=== PATIENT | female | born 1975 | race Hispanic/Latino ===

== ENCOUNTER 2020-03-09 09:35 | Day surgery (SDC) | payer MEDICAID ==
[2020-03-09] MEDS ORDERED: propofoL 200 MG/20 ML VIAL IV ONE (09:56)
[2020-03-09] MEDS ORDERED: CEFAZOLIN/SWI 1gm 1 GM/10 ML SYR ONE (09:56)
[2020-03-09] MEDS ORDERED: LIDOCAINE 1% MPF 5 ML VIAL ONE (09:56)
[2020-03-09] MEDS ORDERED: MIDAZOLAM HCL 2 MG/2 ML INJ ONE ×2 (09:56→10:37)
[2020-03-09] MEDS ORDERED: Ringers Lactate 1,000 ML IV ONE (09:56)
[2020-03-09] MEDS ORDERED: FENTANYL CITR 100 MCG/2 ML ONE (09:56)
[2020-03-09] MEDS: LIDOCAINE 1% MPF 30 ML VIAL ONE ×2 (10:01→10:34)
[2020-03-09] MEDS: HEPARIN 5000 UNIT/ML 1 ML VIAL ONE ×2 (10:01→11:00)
[2020-03-09] MEDS ORDERED: NS 0.9% VIAL 20 ML ONE (10:06)
[2020-03-09 10:11] LABS: Absolute Lymphocytes (CBC) 2.6 K/uL (0.7-4.9); Basophils % 1.5 % (0-1.3); Hematocrit 41.3 % (36.0-45.0); Lymphocytes % 37.4 % (15.3-44.8); MPV 10.2 fL (7.6-11.3); RBC Red Blood Cell Count 4.89 M/uL (3.86-4.86)
[2020-03-09] MEDS ORDERED: ONDANSETRON 4 MG/2 ML VIAL ONE (10:37)
--- OUTSIDE RECORDS SUMMARY | 2020-03-09 10:48 | XMS REPORT ---
:1975 Author Organization [facility] t Address [address] [place] [address] Dr. Waite[address] [place] [address] Care Team Providers Name Role Phone Unavailable Unavailable Unavailable Problems This patient has no known problems. Allergies, Adverse Reactions, Alerts This patient has no known allergies or adverse reactions. Medications This patient has no known medications. Results Test Description Test Time Test Comments Text Results Atomic Results Result Comments BREAST ULTRASOUND CORE 2020-01-06 13:16:29 - BREAST UL TRASOUND CORE BIOPSY BIOPSY RIGHT RIGHTULTRASOUND GUIDED BIOPS Y RIGHT BREAST WITH MARKING DEVICE INSERTED: 12/31/2019CLINICAL: Ultrasound biopsy, right felipe ast. Comparison is made to exams dated 12/16/2019 ultrasound and 12/07 mammogram - [facility]. An ultrasound g uided biopsy using real-time ultra sound was performed for the 4 cm m ass located in the right breast at 9 o'clock, 5 cm from the nippl e. The skin was prepped in the usua l manner. Local anesthetic wa s administered to the access s ite. A 14 gauge biopsy needle was p laced adjacent to the abnormality under ultrasound guidance. Once [facility] needle was documented to be in the correct location, multiple specimens were obtained usin g a [employer]ware biopsy device. A clip was inserted into the biopsy cav ity. The specimens were sent to [facility] laboratory for pathological analysis. IMPRESSION: ULTRA SOUND GUIDED BIOPSY MALIGNANT Ultr asound guided biopsy of the 4 cm ma ss in the right breast at 9 o'cloc k, 5 cm from the nipple, was success ful with no apparent post proced ure complications. PATHOLOGY INDICATES:Malignant invasive ductal carcinoma. Kareen Ansari dm/:01/06/2020 13:16:29 E ntry: lc - 01/06/2020 17:17:56Imagin g Technologist: Radha Moon FW, [facility] DIAG MAMM RIGHT CAD 2019-12-31 11:45:16 - DIAG MAMM R IGHT CAD DIGITAL DIGITALUNILATERAL RIGHT DIGI OTRRES DIAGNOSTIC MAMMOGRAM WITH CA D POST-PROCEDURE IMAGING FOR M ARKER PLACEMENT: 12/31/2019CLINICAL : Post clip. Current mammographic images were evaluated by either a [employer] M-Vu or a TIS[employer] ImageSush.iock er CAD (computer aided detection sy stem). Comparison is made to exam d ated 12/16/2019 [facility]ogram [facility] There ar e scattered fibroglandular tis sues in the right breast. There is a marker clip in the appropria te position in the right breast at 9 o'clock. This marker clip placement is at the biopsy s ite. IMPRESSION: POST PROCEDURE I MAGING FOR MARKER PLACEMENTThere wa s a successful marker clip place ment in the right breast. Kareen pompa M.D. dm/:12/31/2019 11:45:[address]: Brooklynn Sweeney FW, [facility] B I-RADS: Post-procedure mammogram for marker placement BREAST ULTRASOUND 2019-12-16 14:57:56 - DIAG MAMM UMM ATERAL JUAN DIEGO CAD BILATERAL DIGITALBILATERAL DIGITAL WAGNER GNOSTIC MAMMOGRAM 3D/2D WITH CAD: 12/16/2019CLINICAL: Palpable mass, right breast. Digital breas t tomosynthesis was performed in addition to routine CC and M LO views. Current mammographic images were evaluated by either a [employer] M-Vu or a [employer] ImageCheck er CAD (computer aided detection sy stem). No prior exams were availabl e for comparison. There are scatt ered fibroglandular tissues in jed th breasts. There is a 4 cm ir regular mass in the right breast at 9 o'clock. No other significa nt masses, calcifications, or o ther findings are seen in either breast. INCOMPLETE: ADDITIONAL IMAG ING EVALUATION NEEDEDBilateral ultrasound pending for addit ional evaluation. - BREAST ULTRAS OUND BILATERALULTRASOUND OF BOTH BREASTS AND LEFT AXILLA: 12/16/2019No prior exams were available for comparison. Real-time ultra sound of both breasts and left axi lla and clinical breast exam were performed. There is a 4 cm irregular mass in the right breast at 9 o'clock, 5 cm from the nipple. There are enlarged thick ri mmed lymph nodes in the right axi lla. No abnormalities were seen sonographically in the left breast or the left axilla. IMPRESS ION: HIGHLY SUGGESTIVE OF MALIGNA NCY - FOLLOW-UP RECOMMENDEDThe 4 c m irregular mass in the right breast at 9 o'clock needs histologi mode evaluation. An ultrasound g uided biopsy is recommended. The lymph nodes are abnormal.Kareen pompa M.D. dm/:12/16/2019 14:57:56 Entry: - 09/2020 07:39:40Imaging Technologist : Lo THOMSON, Olesya Carrillo [facility] sent: TOYIN Garvey 02/08 Biopsy Mammogram BI-RADS: 0 Incomplete: Additional Imagi ng Evaluation Needed Ultrasound BI-RADS: 5 Highly suggestive of malignancy DIAG MAMM BILATERAL JUAN DIEGO 2019-12-16 14:57:56 - DIAG M AMM BILATERAL JUAN DIEGO CAD CAD DIGITAL DIGITALBILATERAL DIGITAL WAGNER GNOSTIC MAMMOGRAM 3D/2D WITH CAD: 12/16/2019CLINICAL: Palpable mass, right breast. Digital breas t tomosynthesis was performed in addition to routine CC and M LO views. Current mammographic images were evaluated by either a [employer] M-Vu or a Ev[employer] er CAD (computer aided detection sy stem). No prior exams were availabl e for comparison. There are scatt ered fibroglandular tissues in jed th breasts. There is a 4 cm ir regular mass in the right breast at 9 o'clock. No other significa nt masses, calcifications, or o ther findings are seen in either breast. INCOMPLETE: ADDITIONAL IMAG ING EVALUATION NEEDEDBilateral ultrasound pending for addit ional evaluation. - BREAST ULTRAS OUND BILATERALULTRASOUND OF BOTH BREASTS AND LEFT AXILLA: 12/16/2019No prior exams were available for comparison. Real-time ultra sound of both breasts and left axi lla and clinical breast exam were performed. There is a 4 cm irregular mass in the right breast at 9 o'clock, 5 cm from the nipple. There are enlarged thick ri mmed lymph nodes in the right axi lla. No abnormalities were seen sonographically in the left breast or the left axilla. IMPRESS ION: HIGHLY SUGGESTIVE OF MALIGNA NCY - FOLLOW-UP RECOMMENDEDThe 4 c m irregular mass in the right breast at 9 o'clock needs histologi mode evaluation. An ultrasound g uided biopsy is recommended. The lymph nodes are abnormal.Kareen pompa M.D. dm/:12/16/2019 14:57:56 Entry: - 09/2020 07:39:40Imaging Technologist : Lo THOMSON, Olesya Carrillo [facility] sent: TOYIN Garvey 02/08 Biopsy Mammogram BI-RADS: 0 Incomplete: Additional Imagi ng Evaluation Needed Ultrasound BI-RADS: 5 Highly suggestive of malignancy
[2020-03-09] MEDS ORDERED: dexAMETHasone 10 MG/ML VIAL ONE (11:01)
[2020-03-09] MEDS ORDERED: KETOROLAC 30 MG/ML INJ ONE (11:02)
--- NOTE | 2020-03-09 11:53 | RAD REPORT ---
EXAM DESCRIPTION: RAD - Fluoroscopy <1 Hour - 03/09/2020 11:40 am CLINICAL HISTORY: Device placement central venous catheter placement FINDINGS: A central venous catheter was placed into the superior vena cava. Three fluoroscopic spot images are submitted. The examination was performed by Dr. Rodriguez Fluoroscopy time 0.8 minutes
--- NOTE | 2020-03-09 12:05 | RAD REPORT ---
EXAM DESCRIPTION: Hernandez Single View03/09/2020 11:54 am CLINICAL HISTORY: Device placement/central venous catheter placement IMPRESSION: Central venous catheter with its tip in the proximal superior vena cava No pneumothorax
[2020-03-09] MEDS ORDERED: HYDROCODONE/APAP 7.5/325 MG TAB ONE (12:39)
[2020-03-09 12:43] VITALS: BP 155/90; TEMP 96.1; O2SAT 97
--- NOTE | 2020-03-09 12:45 | OP ---
Date of Procedure: 03/09/2020 Surgeon: Wilver Rodriguez MD Preoperative Diagnosis: Right breast cancer. Postoperative Diagnosis: Right breast cancer. Procedures: Left internal jugular Port-A-Cath placement and interpretation of intraoperative fluoros copy. Estimated Blood Loss: Minimal. Specimens: None. Findings: Normal anatomy. Anesthesia: MAC in the beginning but patient was unable to hold still, that was converted to an LMA general prior to me beginning the case. Complications: None. Disposition: Patient tolerated the procedure in stable condition, taken to Recovery in good general condition. Procedure In Detail: Procedure was brought to the OR and placed in supine position and general anest hesia begun after MAC was unsuccessful and then patient was prepped and draped in the usual sterile f ashion. Marcaine 0.5% was infiltrated locally. 18-gauge needle was used to access the left IJ vein. Guidewire was passed. Position confirmed with fluoroscopy. 3 cm counterincision made on the left anterior chest. Subcutaneous tissue divided. Pocket created. A tunneling device was used to tunnel the catheter between the 2 wounds and Seldinger technique was used. Tip of the catheter was placed in the right distal SVC under fluoroscopy, cut to appropriate size, attached to the Port-A-Cath devic e. Port-A-Cath device was attached to subcutaneous tissue with 3-0 Vicryl and then Port-A-Cath devic e flushed with heparin and packed with heparin with good blood flow and then 3-0 chromic used to reap proximate the subcutaneous tissue and close the skin. Sterile dressing applied. Patient awakened, t aken to Recovery in good general condition. Chest x-ray has been ordered. If negative, patient will be discharged to home. Disposition: Home. Condition: Stable. Discharge Instructions: Resume home medications and diet. Activity as tolerated. No heavy lifting. Remove outer dressing in 2 days. Shower. Keep wound clean and dry. Keep Steri-Strips on all time s. Follow up with cancer Center. Call for appointment. Follow up in my office in 2 weeks. Call fo r appointment. Tylenol No. 3 one tablet p.o. q.4 h. p.r.n. pain. /NATANAELL Voice ID: [id number] Report ID: [id number]
== END 2020-03-09 13:15 | disposition home or self-care (01) ==
LOC: OR 09:35
PROVIDERS: ATTEND Surgery
PROC: 0JH60WZ Insertion of Totally Implantable Vascular Access Device into Chest Subcutaneous Tissue and Fascia, Open Approach (ICD-10-PCS; principal; 2020-03-09 10:00)
DX: C50.911 Malignant neoplasm of unspecified site of right female breast (principal); F17.200 Nicotine dependence, unspecified, uncomplicated
CPT/HCPCS: 85025; 36415; 71045; 76000; 36561; J2704; J1644 ×2; J2250 ×2; J3010; J1100; J0690; J7120; J2405; C1788

== ENCOUNTER 2020-05-25 08:05 | Emergency (ER) | payer MEDICAID, OTHER ==
[2020-05-25] MEDS ORDERED: dexAMETHasone 10 MG/ML VIAL ONE (09:04)
[2020-05-25] MEDS ORDERED: NA CHLORIDE 0.9% 1,000 ML ONE (09:04)
[2020-05-25] MEDS ORDERED: HYDROCODONE/CHLORPHEN 5 ML/OSYR ONE (09:04)
--- OUTSIDE RECORDS SUMMARY | 2020-05-25 09:10 | XMS REPORT | Continuity of Care Document ---
:1975 Author Organization [facility] t Address [address] [place] [address] Dr. Deluca [address] [place] [address] Care Team Providers Name Role Phone Unavailable Unavailable Unavailable Problems This patient has no known problems. Allergies, Adverse Reactions, Alerts This patient has no known allergies or adverse reactions. Medications This patient has no known medications. Procedures This patient has no known procedures. Results Test Description Test Time Test Comments Results Result [facility] e Comments BREAST ULTRASOUND 2020-01-06 - BREAST ULTRASOUND CORE CORE BIOPSY RIGHT 13:16:29 BIOPSY RIGHTULTRASOUND GUIDED BIOPSY RIGHT BREAST WITH MARKING DEVICE INSERTED: 12/31/2019CLINICAL: Ultrasound biopsy, right breast. Comparison is made to exams dated 12/16/2019 ultrasound and 12/16/2019 mammogram - [facility]-. An ultrasound guided biopsy using real-time ultrasound was performed for the 4 cm mass located in the right breast at 9 o'clock, 5 cm from the nipple. The skin was prepped in the usual manner. Local anesthetic was administered to the access site. A 14 gauge biopsy needle was placed adjacent to the abnormality under ultrasound guidance. Once the needle was documented to be in the correct location, multiple specimens were obtained using a BARD biopsy device. A clip was inserted into the biopsy cavity. The specimens were sent to the laboratory for pathological analysis. IMPRESSION: ULTRASOUND GUIDED BIOPSY MALIGNANT Ultrasound guided biopsy of the 4 cm mass in the right breast at 9 o'clock, 5 cm from the nipple, was successful with no apparent post procedure complications. PATHOLOGY INDICATES:Malignant invasive ductal carcinoma. Kareen Quintero M.D. dm/:01/06/2020 13:16:29 Entry: - 01/06/2020 17:17:56Imaging Technologist: Radha Moon , [facility]- DIAG MAMM RIGHT 2019-12-31 - DIAG MAMM RIGHT CAD CAD DIGITAL 11:45:16 DIGITALUNILATERAL RIGHT DIGITAL DIAGNOSTIC MAMMOGRAM WITH CAD POST-PROCEDURE IMAGING FOR MARKER PLACEMENT: 12/31/2019CLINICAL: Post clip. Current mammographic images were evaluated by either a [employer] M-Vu or a [employer] ImageChecker CAD (computer aided detection system). Comparison is made to exam dated 12/16/2019 mammogram - [facility]-. There are scattered fibroglandular tissues in the right breast. There is a marker clip in the appropriate position in the right breast at 9 o'clock. This marker clip placement is at the biopsy site. IMPRESSION: POST PROCEDURE IMAGING FOR MARKER PLACEMENTThere was a successful marker clip placement in the right breast. Kareen Quintero M.D. dm/:12/31/2019 11:45:16 Shark Biologist: Brooklynn Sweeney FW, [facility]FWMammogram BI-RADS: Post-procedure mammogram for marker placement BREAST ULTRASOUND 2019-12-16 - DIAG MAMM BILATERAL BILATERAL 14:57:56 JUAN DIEGO CAD DIGITALBILATERAL DIGITAL DIAGNOSTIC MAMMOGRAM 3D/2D WITH CAD: 12/16/2019CLINICAL: Palpable mass, right breast. Digital breast tomosynthesis was performed in addition to routine CC and MLO views. Current mammographic images were evaluated by either a [employer] M-Vu or a [employer] ImageChecker CAD (computer aided detection system). No prior exams were available for comparison. There are scattered fibroglandular tissues in both breasts. There is a 4 cm irregular mass in the right breast at 9 o'clock. No other significant masses, calcifications, or other findings are seen in either breast. INCOMPLETE: ADDITIONAL IMAGING EVALUATION NEEDEDBilateral ultrasound pending for additional evaluation. - BREAST ULTRASOUND BILATERALULTRASOUND OF BOTH BREASTS AND LEFT AXILLA: 12/16/2019No prior exams were available for comparison. Real-time ultrasound of both breasts and left axilla and clinical breast exam were performed. There is a 4 cm irregular mass in the right breast at 9 o'clock, 5 cm from the nipple. There are enlarged thick rimmed lymph nodes in the right axilla. No abnormalities were seen sonographically in the left breast or the left axilla. IMPRESSION: HIGHLY SUGGESTIVE OF MALIGNANCY - FOLLOW-UP RECOMMENDEDThe 4 cm irregular mass in the right breast at 9 o'clock needs histological evaluation. An ultrasound guided biopsy is recommended. The lymph nodes are abnormal.Kareen Quintero M.D. dm/:12/16/2019 14:57:56 [facility] 12/17/2019 07:39:40Imaging Technologist: Julieta Hills [facility]letter sent: BIRADS 4/5 Biopsy Mammogram BI-RADS: 0 Incomplete: Additional Imaging Evaluation Needed Ultrasound BI-RADS: 5 Highly suggestive of malignancy DIAG MAMM 2019-12-16 - DIAG MAMM BILATERAL BILATERAL JUAN DIEGO 14:57:56 JUAN DIEGO CAD CAD DIGITAL DIGITALBILATERAL DIGITAL DIAGNOSTIC MAMMOGRAM 3D/2D WITH CAD: 12/16/2019CLINICAL: Palpable mass, right breast. Digital breast tomosynthesis was performed in addition to routine CC and MLO views. Current mammographic images were evaluated by either a [employer] M-Vu or a [employer] ImageChecker CAD (computer aided detection system). No prior exams were available for comparison. There are scattered fibroglandular tissues in both breasts. There is a 4 cm irregular mass in the right breast at 9 o'clock. No other significant masses, calcifications, or other findings are seen in either breast. INCOMPLETE: ADDITIONAL IMAGING EVALUATION NEEDEDBilateral ultrasound pending for additional evaluation. - BREAST ULTRASOUND BILATERALULTRASOUND OF BOTH BREASTS AND LEFT AXILLA: 12/16/2019No prior exams were available for comparison. Real-time ultrasound of both breasts and left axilla and clinical breast exam were performed. There is a 4 cm irregular mass in the right breast at 9 o'clock, 5 cm from the nipple. There are enlarged thick rimmed lymph nodes in the right axilla. No abnormalities were seen sonographically in the left breast or the left axilla. IMPRESSION: HIGHLY SUGGESTIVE OF MALIGNANCY - FOLLOW-UP RECOMMENDEDThe 4 cm irregular mass in the right breast at 9 o'clock needs histological evaluation. An ultrasound guided biopsy is recommended. The lymph nodes are abnormal.Kareen Quintero M.D. dm/:12/16/2019 14:57:56 [facility] 12/17/2019 07:39:40Imaging Technologist: Lo THOMSON, [facility] sent: BIRADS 4/5 Biopsy Mammogram BI-RADS: 0 Incomplete: Additional Imaging Evaluation Needed Ultrasound BI-RADS: 5 Highly suggestive of malignancy
[2020-05-25 09:32] LABS: Absolute Lymphocytes (CBC) 0.8 K/uL (0.7-4.9); Basophils % 0.2 % (0-1.3); Hematocrit 29.5 % (36.0-45.0); MPV 8.5 fL (7.6-11.3); RBC Red Blood Cell Count 3.45 M/uL (3.86-4.86)
[2020-05-25 09:42] LABS: Protime INR 1.22
[2020-05-25 10:06] LABS: Urine Amorphous Sediment 2+ /HPF (NONE SEEN); Urine Bacteria 20-50 /HPF (<20); Urine Culture Reflex Order REFLEXED; Urine Mucus 2+ /HPF (NONE SEEN)
[2020-05-25 10:12] LABS: ALT/SGPT 38 U/L (12-78); AST/SGOT 29 U/L (15-37); Albumin 3.3 g/dL (3.4-5.0); Alkaline Phosphatase 81 U/L (45-117); BUN Blood Urea Nitrogen 8 mg/dL (7-18); Bicarbonate 24 mmol/L (21-32); Bilirubin Direct 0.1 mg/dL (0-0.2); Bilirubin Total 0.6 mg/dL (0.2-1.0); Glucose Level 129 mg/dL (74-106); Lipase 43 U/L (73-393); Potassium 3.8 mmol/L (3.5-5.1); Protein, Total 7.2 g/dL (6.4-8.2); Sodium Level 142 mmol/L (136-145); Troponin (Emerg Dept Use Only) 0.04 ng/mL (0.0-0.045)
[2020-05-25 10:15] LABS: Anisocytosis 1+; Blood Morphology Comment NOTED (NOT SEEN); Polychromasia 1+
[2020-05-25 10:35] LABS: Urine Blood 2+ (NEG); Urine Glucose NEGATIVE (NEG); Urine Protein 1+ (NEG); Urine Specific Gravity >1.030 (1.005-1.030); Urine pH 5.5 (5.0-7.0)
[2020-05-25 11:11] LABS: Platelet Estimate ADEQ
--- NOTE | 2020-05-25 11:19 | RAD REPORT ---
EXAM DESCRIPTION: CT - Chest For Pe Angio - 05/25/2020 10:52 am CLINICAL HISTORY: Shortness breath COMPARISON: February 2020 TECHNIQUE: Dynamically enhanced axial 3 mm thick images of the chest were obtained during administra tion of <100> mL Isovue 370 IV contrast. Coronal and oblique reconstruction images were generated and reviewed. Exam utilizes a protocol for optimal evaluation of pulmonary arterial tree. Maximum intensity projections 3D imaging was utilized All CT scans are performed using dose optimization technique as appropriate and may include automated exposure control or mA/KV adjustment according to patient size. FINDINGS: A pulmonary embolus is not seen. A thoracic aortic aneurysm is not noted. A pleural effusion is not seen. A pericardial effusion is not seen. Mild to moderate diffuse bilateral ground-glass opacities Development of a 9 x 7 millimeter anterior mediastinal lymph node The 4.3 centimeter right breast mass described on the prior exam is no longer evident. Ill-defined 20 x 10 millimeter opacity in this region likely post treatment change. The mild right axillary lymphad enopathy has resolved IMPRESSION: Negative for a pulmonary embolism. Mild to moderate diffuse bilateral ground-glass opacities may indicate pneumonitis
--- NOTE | 2020-05-25 11:20 | RAD REPORT ---
EXAM DESCRIPTION: Hernandez Single View05/25/2020 9:59 am CLINICAL HISTORY: Cough COMPARISON: March 2020 FINDINGS: Lungs are mildly hazy The heart is normal size A left central venous line has its tip in the distal brachiocephalic vein. IMPRESSION: Lungs are mildly hazy which may indicate pneumonitis
--- NOTE | 2020-05-25 13:29 | EDPHYS ---
Physician Documentation [facility] Name: Sujey Dunlap Age: 44 yrs Sex: Female : 1975 Arrival Date: 05/25/2020 Time: 08:07 Bed 18 Private MD: Alysia Kruse ED Physician Gonzalez Moura HPI: 05/25 10:37 This 44 yrs old Female presents to ER via Ambulatory with complaints of Cough, snw Fever, Shortness Of Breath. 10:37 The patient or guardian reports cough, described as moderate, with productive sputum, snw that is white, difficulty breathing. Onset: The symptoms/episode began/occurred gradually, 4 day(s) ago, and became persistent. Modifying factors: The symptoms are alleviated by nothing. Associated signs and symptoms: Pertinent positives: fever, Sob on exertion. The patient has not experienced similar symptoms in the past. pt had chemo last week. Started with bodyaches last week, thought it was just chemo. Pt started having fever to 101 over the weekend, productive cough, started with diarrhea this am. Sees Dr. Burroughs and Dr. Rodriguez. Historical: - Allergies: 08:26 Codeine; bp - Home Meds: 08:26 gabapentin 300 mg oral cap 1 cap 3 times per day [Active]; tramadol 50 mg Oral tab 1 bp tab every 6 hours [Active]; dexamethasone 4 mg Oral tab 2.5 tabs once daily [Active]; - PMHx: 08:26 Cancer; bp - Immunization history:: Adult Immunizations up to date. - Social history:: Smoking status: Patient denies any tobacco usage or history of. ROS: 10:36 Eyes: Negative for injury, pain, redness, and discharge, ENT: Negative for injury, snw pain, and discharge, Neck: Negative for injury, pain, and swelling, Cardiovascular: Negative for chest pain, palpitations, and edema. 10:36 Abdomen/GI: Negative for abdominal pain, nausea, vomiting, diarrhea, and constipation, Back: Negative for injury and pain, : Negative for injury, bleeding, discharge, and swelling, MS/Extremity: Negative for injury and deformity, Skin: Negative for injury, rash, and discoloration, Neuro: Negative for headache, weakness, numbness, tingling, and seizure, Psych: Negative for depression, anxiety, suicide ideation, homicidal ideation, and hallucinations. 10:36 Constitutional: Positive for body aches, fever, malaise, productive cough. 10:36 Respiratory: Positive for cough, shortness of breath. Exam: 10:31 Head/Face: Normocephalic, atraumatic. Eyes: Pupils equal round and reactive to light, snw extra-ocular motions intact. Lids and lashes normal. Conjunctiva and sclera are non-icteric and not injected. Cornea within normal limits. Periorbital areas with no swelling, redness, or edema. ENT: Nares patent. No nasal discharge, no septal abnormalities noted. Tympanic membranes are normal and external auditory canals are clear. Oropharynx with no redness, swelling, or masses, exudates, or evidence of obstruction, uvula midline. Mucous membranes moist. Neck: Trachea midline, no thyromegaly or masses palpated, and no cervical lymphadenopathy. Supple, full range of motion without nuchal rigidity, or vertebral point tenderness. No Meningismus. Chest/axilla: Normal chest wall appearance and motion. Nontender with no deformity. No lesions are appreciated. 10:31 Abdomen/GI: Soft, non-tender, with normal bowel sounds. No distension or tympany. No guarding or rebound. No evidence of tenderness throughout. Back: No spinal tenderness. No costovertebral tenderness. Full range of motion. Skin: Warm, dry with normal turgor. Normal color with no rashes, no lesions, and no evidence of cellulitis. MS/ Extremity: Pulses equal, no cyanosis. Neurovascular intact. Full, normal range of motion. Neuro: Awake and alert, GCS 15, oriented to person, place, time, and situation. Cranial nerves II-XII grossly intact. Motor strength 5/5 in all extremities. Sensory grossly intact. Cerebellar exam normal. Normal gait. Psych: Awake, alert, with orientation to person, place and time. Behavior, mood, and affect are within normal limits. 10:31 Constitutional: The patient appears alert, awake, pale. 10:31 Cardiovascular: Rate: tachycardic, Rhythm: regular, Pulses: no pulse deficits are appreciated, Edema: is not appreciated. 10:31 Respiratory: moderate respiratory distress is noted, on return from ambulation from bathroom, pt tachycardic and noticeably short of breath, Respirations: shallow respirations, tachypnea, that is moderate, Breath sounds: bronchial sounds, that are mild, Respiratory rate: 34 10:31 Respiratory: cough productive of white sputum. Vital Signs: 08:22 BP 119 / 64; Pulse 125; Resp 17; Temp 99.1; Pulse Ox 99% ; Weight 92.53 kg; Height 5 bp ft. 4 in. (162.56 cm); 10:00 BP 111 / 48; Pulse 112; Resp 17; Pulse Ox 96% ; bp 11:08 BP 124 / 55; Pulse 106; Resp 19; Pulse Ox 93% on R/A; bp 12:07 BP 122 / 68; Pulse 108; Resp 16; Pulse Ox 96% ; bp 13:21 BP 111 / 73; Pulse 106; Resp 17; Pulse Ox 97% ; bp 08:22 Body Mass Index 35.02 (92.53 kg, 162.56 cm) bp MDM: 09:06 Patient medically screened. snw 13:31 Data reviewed: vital signs, nurses notes. Data interpreted: Pulse oximetry: on room air snw is 97 %. Interpretation: normal. Counseling: I had a detailed discussion with the patient and/or guardian regarding: the historical points, exam findings, and any diagnostic results supporting the discharge/admit diagnosis, lab results, radiology results, the need for outpatient follow up, to return to the emergency department if symptoms worsen or persist or if there are any questions or concerns that arise at home. Special discussion: Based on the history and exam findings, there is no indication for further emergent testing or inpatient evaluation. I discussed with the patient/guardian the need to see the index clerk/oncologist for further evaluation of the symptoms. I discussed with the patient/guardian the need to see the primary care provider for further evaluation of the symptoms. 05/25 08:34 Order name: Blood Culture Adult (2) bp 05/25 08:34 Order name: BMP bp 05/25 08:34 Order name: C-Reactive Protein bp 05/25 08:34 Order name: CBC with Diff bp 05/25 08:34 Order name: COVID-19 bp 05/25 08:34 Order name: Ferritin; Complete Time: 10:20 bp 05/25 08:34 Order name: Flu; Complete Time: 10:20 bp 05/25 08:34 Order name: Lactate; Complete Time: 09:45 bp 05/25 08:34 Order name: LFT's; Complete Time: 10:20 bp 05/25 08:34 Order name: Lipase; Complete Time: 10:20 bp 05/25 08:34 Order name: Procalcitonin; Complete Time: 10:20 bp 05/25 08:34 Order name: PT-INR; Complete Time: 09:45 bp 05/25 08:34 Order name: Ptt, Activated; Complete Time: 09:45 bp 05/25 08:34 Order name: Strep; Complete Time: 10:20 bp 05/25 08:34 Order name: Troponin (emerg Dept Use Only); Complete Time: 10:20 bp 05/25 08:34 Order name: Urine Microscopic Only; Complete Time: 10:20 bp 05/25 08:34 Order name: CXR XRAY 05/25 08:34 Order name: EKG; Complete Time: 08:36 bp 05/25 08:35 Order name: Blood Culture [facility] 05/25 08:35 Order name: Basic Metabolic Panel; Complete Time: 10:20 EDN[facility] 05/25 08:35 Order name: C-Reactive Protein; Complete Time: 10:20 EDN[facility] 05/25 08:35 Order name: CBC with Automated Diff; Complete Time: 11:11 EDN[facility] 05/25 09:36 Order name: Urine Dipstick--Ancillary (enter results); Complete Time: 10:40 mt 05/25 09:58 Order name: Throat Culture [facility] 05/25 10:08 Order name: Urine Culture [facility] 05/25 10:15 Order name: Manual Differential; Complete Time: 11:11 EDNJ 05/25 10:22 Order name: CT Chest For PE Angio; Complete Time: 11:20 bp 05/25 08:34 Order name: Cardiac monitoring; Complete Time: 09:31 bp 05/25 08:34 Order name: Document PUI#; Complete Time: 10:25 bp 05/25 08:34 Order name: Droplet/Contact Precautions; Complete Time: 09:31 bp 05/25 08:34 Order name: EKG - Nurse/Tech; Complete Time: 10:21 bp 05/25 08:34 Order name: IV Start; Complete Time: 09:31 bp 05/25 08:34 Order name: Labs collected and sent; Complete Time: 09:30 bp 05/25 08:34 Order name: Notify Health Dept [phone]/ ; Complete Time: 10:25 bp 05/25 08:34 Order name: O2 Per Protocol; Complete Time: 09:30 bp 05/25 08:34 Order name: O2 Sat Monitoring; Complete Time: 09:31 bp 05/25 08:34 Order name: Urine Dipstick-Ancillary (obtain specimen); Complete Time: 09:31 bp Administered Medications: 09:15 Drug: NS 0.9% 1000 ml Route: IV; Rate: 125 ml/hr; Site: right forearm; bp 13:54 Follow up: IV Status: Completed infusion; IV Intake: 1000ml bp 09:15 Drug: Decadron - Dexamethasone 10 mg Route: IVP; Site: right forearm; bp 10:21 Follow up: Response: No adverse reaction bp 10:21 Follow up: Response: No adverse reaction bp 09:15 Drug: Tussionex Pennkinetic ER 5 ml Route: PO; bp 13:54 Follow up: Response: Pain is decreased bp Disposition: 15:37 Co-signature as Attending Physician, Gonzalez Moura MD. rn Disposition: 05/25/20 13:28 Discharged to Home. Impression: SARS-associated coronavirus as the cause of diseases classified elsewhere. - Condition is Stable. - Discharge Instructions: Severe Acute Respiratory Syndrome (SARS). - Prescriptions for Prednisone 20 mg Oral Tablet - take 1 tablet by ORAL route once daily for 5 days; 5 tablet. Zithromax 500 mg Oral Tablet - take 1 tablet by ORAL route once daily for 5 days; 5 tablet. - Medication Reconciliation Form, Thank You Letter, Antibiotic Education, Prescription Opioid Use form. - Follow up: Emergency Department; When: As needed; Reason: Worsening of condition. Follow up: Alysia Kruse MD; When: 2 - 3 days; Reason: Recheck today's complaints, Continuance of care, Re-evaluation by your physician. Signatures: Dispatcher [employer] EDNanette Lyn, BAG FILLER-C BAG FILLER-Csnw Gonzalez Moura MD MD rn Peltier, Brian RN RN bp Corrections: (The following items were deleted from the chart) 13:54 13:28 05/25/2020 13:28 Discharged to Home. Impression: SARS-associated coronavirus as bp the cause of diseases classified elsewhere. Condition is Stable. Forms are Medication Reconciliation Form, Thank You Letter, Antibiotic Education, Prescription Opioid Use. Follow up: Emergency Department; When: As needed; Reason: Worsening of condition. Follow up: Alysia Can; When: 2 - 3 days; Reason: Recheck today's complaints, Continuance of care, Re-evaluation by your physician. snw
--- NOTE | 2020-05-25 13:29 | ER ---
Nurse's Notes [facility] Name: Sujey Dunlap Age: 44 yrs Sex: Female : 1975 Arrival Date: 05/25/2020 Time: 08:07 Bed 18 Private MD: Alysia Kruse Diagnosis: SARS-associated coronavirus as the cause of diseases classified elsewhere Presentation: 05/25 08:22 Chief complaint: Patient states: MY DOCTOR SENT ME HERE BECAUSE I'M A CHEMO PATIENT AND bp I HAD A COUGH AND FEVER OVER THE WEEKEND. Coronavirus screen: Patient reports a cough. Patient reports shortness of breath or difficulty breathing. Patient reports a measured and/or subjective temperature greater than 100.4F. Patient instructed to continue to wear a mask when interacting with others. Patient moved to private room, placed in contact and droplet isolation with eye protection until further assessment. Ebola Screen: No symptoms or risks identified at this time. Initial Sepsis Screen: Does the patient meet any 2 criteria? HR > 90 bpm. No. Patient's initial sepsis screen is negative. Does the patient have a suspected source of infection? Yes: Productive cough/pneumonia. Risk Assessment: Do you want to hurt yourself or someone else? Patient reports no desire to harm self or others. Onset of symptoms is unknown. 08:22 Method Of Arrival: Ambulatory bp 08:22 Acuity: MARQUEZ 3 bp Triage Assessment: 08:26 General: Appears in no apparent distress. uncomfortable, Behavior is calm, cooperative, bp appropriate for age. Pain: Denies pain. EENT: No deficits noted. Neuro: No deficits noted. Cardiovascular: Rhythm is sinus tachycardia. Respiratory: Reports shortness of breath at rest cough that is Onset: The symptoms/episode began/occurred 2 DAYS AGO, the patient has moderate shortness of breath. GI: No signs and/or symptoms were reported involving the gastrointestinal system. : No signs and/or symptoms were reported regarding the genitourinary system. Derm: No deficits noted. Musculoskeletal: No deficits noted. Historical: - Allergies: 08: Codeine; bp - Home Meds: 08: gabapentin 300 mg oral cap 1 cap 3 times per day [Active]; tramadol 50 mg Oral tab 1 bp tab every 6 hours [Active]; dexamethasone 4 mg Oral tab 2.5 tabs once daily [Active]; - PMHx: 08:26 Cancer; bp - Immunization history:: Adult Immunizations up to date. - Social history:: Smoking status: Patient denies any tobacco usage or history of. Screenin:28 Abuse screen: Denies threats or abuse. Denies injuries from another. Nutritional bp screening: No deficits noted. Tuberculosis screening: No symptoms or risk factors identified. Fall Risk None identified. Assessment: 08:28 General: SEE TRIAGE NOTE. Cardiovascular: Rhythm is sinus tachycardia. Respiratory: bp Airway is patent Respiratory effort is even, labored, Breath sounds are coarse. 10:00 Reassessment: CT PENDING. ST ON MONITOR, PT AFFIRMS DYSPNEA WITH REST AND EXERTION. bp 11:09 Reassessment: PT RETURNED FROM CT. ALL CURRENT ORDERS COMPLETE. bp 12:05 Reassessment: CT CHEST GROSSLY ABNORMAL, PROVIDER AWARE. VS STABLE ON MONITOR. bp 13:26 Reassessment: DISPO PENDING. VS STABLE ON MONITOR. bp 13:53 Reassessment: PT D/C HOME AMBULATORY, DX WITH SARS-RELATED CORONAVIRUS. bp Vital Signs: 08:22 BP 119 / 64; Pulse 125; Resp 17; Temp 99.1; Pulse Ox 99% ; Weight 92.53 kg; Height 5 bp ft. 4 in. (162.56 cm); 10:00 BP 111 / 48; Pulse 112; Resp 17; Pulse Ox 96% ; bp 11:08 BP 124 / 55; Pulse 106; Resp 19; Pulse Ox 93% on R/A; bp 12:07 BP 122 / 68; Pulse 108; Resp 16; Pulse Ox 96% ; bp 13:21 BP 111 / 73; Pulse 106; Resp 17; Pulse Ox 97% ; bp 08:22 Body Mass Index 35.02 (92.53 kg, 162.56 cm) bp ED Course: 08:07 Patient arrived in ED. ag5 08:07 Alysia Kruse MD is Private Physician. ag5 08:16 Mega Hooper, TRACI is Primary Nurse. bp 08:17 Nan[facility] Faustin [facility]C [facility] snw 08:17 Gonzalez Moura MD is Attending Physician. snw 08:24 Triage completed. bp 08:27 Arm band placed on. bp 08:28 Patient has correct armband on for positive identification. Bed in low position. Call bp light in reach. Side rails up X2. 09:15 Inserted saline lock: 20 gauge in right forearm, using aseptic technique. Blood bp collected. 09:59 CXR XRAY In Process Unspecified. EDMS 10:52 CT Chest For PE Angio In Process Unspecified. EDMS 13:28 Alysia Kruse MD is Referral Physician. snw 13:53 No provider procedures requiring assistance completed. IV discontinued, intact, bp bleeding controlled, No redness/swelling at site. Pressure dressing applied. Administered Medications: 09:15 Drug: NS 0.9% 1000 ml Route: IV; Rate: 125 ml/hr; Site: right forearm; bp 13:54 Follow up: IV Status: Completed infusion; IV Intake: 1000ml bp 09:15 Drug: Decadron - Dexamethasone 10 mg Route: IVP; Site: right forearm; bp 10:21 Follow up: Response: No adverse reaction bp 10:21 Follow up: Response: No adverse reaction bp 09:15 Drug: Tussionex Pennkinetic ER 5 ml Route: PO; bp 13:54 Follow up: Response: Pain is decreased bp Intake: 13:54 IV: 1000ml; Total: 1000ml. bp Outcome: 13:28 Discharge ordered by . snw 13:53 Discharged to home ambulatory. bp 13:53 Condition: stable 13:53 Discharge instructions given to patient, Instructed on discharge instructions, follow up and referral plans. medication usage, Demonstrated understanding of instructions, follow-up care, medications, Prescriptions given X 2. 13:54 Patient left the ED. bp Addendum: 05/28/2020 13:41 Addendum: COVID-19 Result: Negative result given to RN to notify pt. Contacted by: Coty Smith RN. Notified pt of negative COVID 19 swab results. Pt advised that even with a negative test result they should remain in isolation until symptom free for 3 days without medication. Pt also advised to return to the ED for worsening symptoms. Signatures: Dispatcher [employer] Masha Cormier, RN RN dm5 Nanette Faustin, POLYTECHNIC TEACHER-C POLYTECHNIC TEACHER-Claudiaw Mega Hooper RN RN bp Tonya Prater ag5
[2020-05-25 22:00] VITALS: TEMP 99.1
[2020-05-25 22:07] VITALS: BP 111/73; O2SAT 97
--- NOTE | 2020-05-26 10:17 | EKG ---
Test Date: 2020-05-25 Test Time: 10:30:41 Interpreter: BERNICE MEASUREMENT RESULTS: Intervals: Rate: 102 KS: 156 QRSD: 86 QT: 390 QTc: 508 Andreas: P: 51 KS: 156 QRS: 32 T: 28 INTERPRETIVE STATEMENTS: Sinus tachycardia Otherwise normal ECG No previous ECG available for comparison Electronically Signed On 05-26-20 10:14:05 CDT by Tushar Roe
== END 2020-05-25 13:54 | disposition home or self-care (01) ==
LOC: ER 08:05
DX: U07.1 COVID-19 (principal); Z88.6 Allergy status to analgesic agent; Z85.9 Personal history of malignant neoplasm, unspecified
CPT/HCPCS: 96361; 93005; 87040 ×2; 87070; 87088; 85025; 87086; 80048; 36415; 85610; 80076; 87081; 83605; 85730; 84484; 82728; 83690; 84145; 86140; 87804 ×2; 71275; 71045; 96374; 99284; U0001; Q9967; J1100; J7030; 81003; 81015

== ENCOUNTER 2020-06-27 13:13 | Emergency (ER) | payer MEDICAID ==
--- OUTSIDE RECORDS SUMMARY | 2020-06-27 13:15 | XMS REPORT | Continuity of Care Document ---
:1975 Author Organization [facility] t Address [address] [place] [address] [address] [place] [address] Care Team Providers Name Role Phone Unavailable Unavailable Unavailable Problems This patient has no known problems. Allergies, Adverse Reactions, Alerts This patient has no known allergies or adverse reactions. Medications This patient has no known medications. Procedures This patient has no known procedures. Results Test Description Test Time Test Comments Results Result [facility] e Comments BREAST ULTRASOUND 2020-01-06 - BREAST ULTRASOUND CORE CORE BIOPSY RIGHT 13:16:29 BIOPSY RIGHTULTRASOUND GUIDED BIOPSY RIGHT BREAST WITH MARKING DEVICE INSERTED: 12/31/2019CLINICAL: Ultrasound biopsy, right breast. Comparison is made to exams dated 12/16/2019 ultrasound and 12/16/2019 mammogram - [facility]-. An ultrasound guided biopsy using [...] 01/06/2020 17:17:56Imaging Technologist: Radha Moon , [facility]- DIAG MAMM RIGHT 2019-12-31 - DIAG MAMM RIGHT CAD CAD DIGITAL 11:45:16 DIGITALUNILATERAL RIGHT DIGITAL DIAGNOSTIC MAMMOGRAM WITH CAD POST-PROCEDURE IMAGING FOR MARKER PLACEMENT: 12/31/2019CLINICAL: Post clip. Current mammographic images were evaluated by either a [employer] M-Vu or a [employer] ImageChecker CAD (computer aided detection system). Comparison is made to exam dated 12/16/2019 mammogram - [facility]-. There are scattered fibroglandular tissues in the right breast. There is a marker clip in the appropriate position in the right breast at 9 o'clock. This marker clip placement is at the biopsy site. IMPRESSION: POST PROCEDURE IMAGING FOR MARKER PLACEMENTThere was a successful marker clip placement in the right breast. Kareen Quintero M.D. dm/:12/31/2019 11:45:16 Emergency Planner: Brooklynn Sweeney FW, [facility]-FWMammogram BI-RADS: Post-procedure mammogram for marker placement BREAST ULTRASOUND 2019-12-16 - DIAG MAMM BILATERAL BILATERAL 14:57:56 JUAN DIEGO CAD DIGITALBILATERAL DIGITAL DIAGNOSTIC MAMMOGRAM 3D/2D WITH CAD: 12/16/2019CLINICAL: Palpable mass, right breast. Digital breast tomosynthesis was performed in addition to routine CC and MLO views. Current mammographic images were evaluated by either a [employer] M-Vu or a [employer] ImageChecker CAD (computer aided detection system). No [...] are abnormal.Kareen Quintero M.D. dm/:12/16/2019 14:57:56 Entry: [facility] 12/17/2019 07:39:40Imaging Technologist: Julieta Hills [facility]-FWletter sent: BIRADS 4/5 Biopsy Mammogram [...] mammographic images were evaluated by either a [employer] M-Vu or a [employer] ImageChecker CAD (computer aided detection system). No [...] are abnormal.Kareen Quintero M.D. dm/:12/16/2019 14:57:56 Entry: [facility] 12/17/2019 07:39:40Imaging Technologist: Lo THOMSON, [facility]-FWletter sent: BIRADS 4/5 Biopsy Mammogram BI-RADS: 0 Incomplete: Additional Imaging Evaluation Needed Ultrasound BI-RADS: 5 Highly suggestive of malignancy
[2020-06-27] MEDS ORDERED: NA CHLORIDE 0.9% 1,000 ML ONE (15:01)
[2020-06-27 15:15] LABS: Absolute Lymphocytes (CBC) 0.6 K/uL (0.7-4.9); Basophils % 0.9 % (0-1.3); Hematocrit 34.4 % (36.0-45.0); Lymphocytes % 14.9 % (15.3-44.8); MPV 9.7 fL (7.6-11.3); RBC Red Blood Cell Count 4.06 M/uL (3.86-4.86)
[2020-06-27 15:16] LABS: Protime INR 1.07
[2020-06-27 15:33] LABS: ALT/SGPT 42 U/L (12-78); AST/SGOT 21 U/L (15-37); Albumin 3.6 g/dL (3.4-5.0); Alkaline Phosphatase 97 U/L (45-117); BUN Blood Urea Nitrogen 12 mg/dL (7-18); Bicarbonate 28 mmol/L (21-32); Bilirubin Direct < 0.1 mg/dL (0-0.2); Bilirubin Total 0.6 mg/dL (0.2-1.0); Glucose Level 160 mg/dL (74-106); Magnesium 2.1 mg/dL (1.8-2.4); NT PRO-BNP 94 pg/mL (<125); Potassium 3.1 mmol/L (3.5-5.1); Protein, Total 7.1 g/dL (6.4-8.2); Sodium Level 143 mmol/L (136-145); Troponin (Emerg Dept Use Only) 0.02 ng/mL (0.0-0.045)
--- NOTE | 2020-06-27 16:10 | ER ---
Nurse's Notes [facility] Name: Sujey Dunlap Age: 45 yrs Sex: Female : 1975 Arrival Date: 06/27/2020 Time: 13:15 Bed 13 Private MD: Alysia Kruse Diagnosis: Dehydration;Nausea and vomiting Presentation: 06/27 13:18 Chief complaint: Patient states: "I am a cancer patient, this morning I was on the jd3 mower for about 2 hours and I think I just got over heated. I got light headed and dizzy. I was able to get some water in me, but I am having this dizzy spell.". Coronavirus screen: At this time, the client does not indicate any symptoms associated with coronavirus-19. Ebola Screen: Patient negative for fever greater than or equal to 101.5 degrees Fahrenheit, and additional compatible Ebola Virus Disease symptoms. Initial Sepsis Screen: Does the patient meet any 2 criteria? No. Patient's initial sepsis screen is negative. Does the patient have a suspected source of infection? No. Patient's initial sepsis screen is negative. Risk Assessment: Do you want to hurt yourself or someone else? Patient reports no desire to harm self or others. Onset of symptoms was June 27, 2020. 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 - Social history:: Smoking status: Patient reports the use of cigarette tobacco products, denies chronic smoking, but will smoke occasionally, Patient uses street drugs, marijuana. Screenin:00 Abuse screen: Denies threats or abuse. Denies injuries from another. Nutritional jl7 screening: No deficits noted. Tuberculosis screening: No symptoms or risk factors identified. Fall Risk IV access (20 points). Total Rowan Fall Scale indicates No Risk (0-24 pts). Assessment: 15:00 General: Appears in no apparent distress. uncomfortable, Behavior is calm, cooperative, jl7 appropriate for age. Pain: Denies pain. Neuro: Level of Consciousness is awake, alert, obeys commands, Oriented to person, place, time, situation, Reports dizziness, weakness. Cardiovascular: Patient's skin is warm and dry. Respiratory: Airway is patent Respiratory effort is even, unlabored, Respiratory pattern is regular, symmetrical. GI: Abdomen is non-distended, Patient currently denies nausea. : No signs and/or symptoms were reported regarding the genitourinary system. EENT: No signs and/or symptoms were reported regarding the EENT system. Derm: Skin is pink, warm \\T\\ dry. Musculoskeletal: No signs and/or symptoms reported regarding the musculoskeletal system. 16:00 Reassessment: Patient appears in no apparent distress at this time. Patient and/or jl7 family updated on plan of care and expected duration. Pain level reassessed. Patient is alert, oriented x 3, equal unlabored respirations, skin warm/dry/pink. Patient states feeling better. Patient states symptoms have improved. Vital Signs: 13:20 BP 99 / 43; Pulse 84; Resp 15 S; Temp 97.8(O); Pulse Ox 98% on R/A; Weight 89.36 kg jd3 (R); Height 5 ft. 4 in. (162.56 cm) (R); Pain 4/10; 15:00 BP 96 / 55; Pulse 78; Resp 16 S; Pulse Ox 100% on R/A; jl7 16:00 BP 106 / 58; Pulse 79; Resp 15; Pulse Ox 100% ; jl7 13:20 Body Mass Index 33.81 (89.36 kg, 162.56 cm) jd3 ED Course: 13:15 Patient arrived in ED. ag5 13:15 Alysia Kruse MD is Private Physician. ag5 13:20 Triage completed. jd3 13:23 Arm band placed on. jd3 13:23 Patient placed in waiting room, Patient notified of wait time. jd3 14:23 [facility]burn [facility]. pm1 14:23 Ananth Arcos MD is Attending Physician. pm1 14:40 XRAY Chest (1 view) In Process Unspecified. EDMS 14:49 July Richards, RN is Primary Nurse. jl7 15:00 Patient has correct armband on for positive identification. Bed in low position. Call jl7 light in reach. Side rails up X 1. serology technician on. Pulse ox on. NIBP on. 15:00 Initial lab(s) drawn, by me, sent to lab. EKG done, by ED staff, reviewed by Pradip Blackburn STRAND GALVANIZER. Inserted saline lock: 22 gauge in right hand, using aseptic technique. Blood collected. 16:23 No provider procedures requiring assistance completed. IV discontinued, intact, jl7 bleeding controlled, No redness/swelling at site. Pressure dressing applied. Administered Medications: 14:55 Drug: NS 0.9% 1000 ml Route: IV; Rate: 1000 ml; Site: right hand; jl7 16:00 Follow up: Response: No adverse reaction; IV Status: Completed infusion; IV Intake: jl7 1000ml Intake: 16:00 IV: 1000ml; Total: 1000ml. jl7 Outcome: 16:09 Discharge ordered by . pm1 16:23 Discharged to home ambulatory. jl7 16:23 Condition: stable 16:23 Discharge instructions given to patient, Instructed on discharge instructions, follow up and referral plans. Demonstrated understanding of instructions, follow-up care. 16:24 Patient left the ED. jl7 Signatures: Dispatcher [employer] EDNM Pradip Blackburn, ASAD STRAND GALVANIZER pm1 July Richards, RN RN cari7 Gonzalo Ross RN RN jTonya Munroe ag5
--- NOTE | 2020-06-27 16:10 | EDPHYS ---
Physician Documentation [facility] Name: Sujey Dunlap Age: 45 yrs Sex: Female : 1975 Arrival Date: 06/27/2020 Time: 13:15 Bed 13 Private MD: Alysia Kruse ED Physician Ananth Arcos HPI: 06/27 14:44 This 45 yrs old Female presents to ER via Ambulatory with complaints of pm1 Nausea, Dizziness. 14:44 The patient presents with dizziness, generalized weakness. Onset: The symptoms/episode pm1 began/occurred today. Context: occurred at home, occurred while the patient was after finishing mowing the lawn for the past 2 hours. just prior to the episode the patient experienced no apparent symptoms. Modifying factors: the symptoms are aggravated by changing position. Associated signs and symptoms: Pertinent negatives: abdominal pain, chest pain, headache, palpitations, shortness of breath. Severity of symptoms: in the emergency department the symptoms have improved Pain is currently a 0 / 10. The patient has not experienced similar symptoms in the past. 14:44 Once the patient started to experience dizziness, she started to hyperventilate and pm1 started getting blurred tunnel vision. 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 - Social history:: Smoking status: Patient reports the use of cigarette tobacco products, denies chronic smoking, but will smoke occasionally, Patient uses street drugs, marijuana. ROS: 14:44 Constitutional: Negative for fever, chills, and weight loss, Eyes: Negative for injury, pm1 pain, redness, and discharge, ENT: Negative for injury, pain, and discharge, Neck: Negative for injury, pain, and swelling, Cardiovascular: Negative for chest pain, palpitations, and edema, Respiratory: Negative for shortness of breath, cough, wheezing, and pleuritic chest pain, Abdomen/GI: Negative for abdominal pain, nausea, vomiting, diarrhea, and constipation, Back: Negative for injury and pain, MS/Extremity: Negative for injury and deformity, Skin: Negative for injury, rash, and discoloration. 14:44 Neuro: Positive for dizziness, weakness. Exam: 14:44 Constitutional: This is a well developed, well nourished patient who is awake, alert, pm1 and in no acute distress. Head/Face: Normocephalic, atraumatic. Neck: Trachea midline, no thyromegaly or masses palpated, and no cervical lymphadenopathy. Supple, full range of motion without nuchal rigidity, or vertebral point tenderness. No Meningismus. 14:44 Back: No spinal tenderness. No costovertebral tenderness. Full range of motion. Skin: Warm, dry with normal turgor. Normal color with no rashes, no lesions, and no evidence of cellulitis. MS/ Extremity: Pulses equal, no cyanosis. Neurovascular intact. Full, normal range of motion. 14:44 Cardiovascular: Rate: normal, Rhythm: regular, Pulses: no pulse deficits are appreciated, Edema: is not appreciated. 14:44 Respiratory: Exam negative for acute changes, respiratory distress, shortness of breath. 14:44 Abdomen/GI: Exam negative for acute changes, Inspection: abdomen appears normal, Palpation: abdomen is soft and non-tender, in all quadrants. 14:44 Neuro: Exam negative for acute changes, Orientation: is normal, Mentation: is normal, Motor: is normal, moves all fours, Sensation: is normal, no obvious gross deficits. Vital Signs: 13:20 BP 99 / 43; Pulse 84; Resp 15 S; Temp 97.8(O); Pulse Ox 98% on R/A; Weight 89.36 kg jd3 (R); Height 5 ft. 4 in. (162.56 cm) (R); Pain 4/10; 15:00 BP 96 / 55; Pulse 78; Resp 16 S; Pulse Ox 100% on R/A; jl7 16:00 BP 106 / 58; Pulse 79; Resp 15; Pulse Ox 100% ; jl7 13:20 Body Mass Index 33.81 (89.36 kg, 162.56 cm) jd3 MDM: 14:24 Patient medically screened. [facility] 14:50 Data reviewed: vital signs. Data interpreted: Pulse oximetry: on room air is 98 %. pm1 Interpretation: normal. 16:09 Counseling: I had a detailed discussion with the patient and/or guardian regarding: the pm1 historical points, exam findings, and any diagnostic results supporting the discharge/admit diagnosis, lab results, radiology results, the need for outpatient follow up, to return to the emergency department if symptoms worsen or persist or if there are any questions or concerns that arise at home. 06/27 14:28 Order name: Basic Metabolic Panel; Complete Time: 15:47 pm1 06/27 14:28 Order name: CBC with Diff; Complete Time: 15:47 pm1 06/27 14:28 Order name: LFT's; Complete Time: 15:47 pm1 06/27 14:28 Order name: Magnesium; Complete Time: 15:47 pm1 06/27 14:28 Order name: NT PRO-BNP; Complete Time: 15:47 pm1 06/27 14:28 Order name: PT-INR; Complete Time: 15:47 pm1 06/27 14:28 Order name: Troponin (emerg Dept Use Only); Complete Time: 15:47 pm1 06/27 14:28 Order name: XRAY Chest (1 view) pm1 06/27 14:28 Order name: EKG; Complete Time: 14:29 pm1 06/27 14:28 Order name: Cardiac monitoring; Complete Time: 16:20 pm1 06/27 14:28 Order name: EKG - Nurse/Tech; Complete Time: 16:20 pm06/27 14:28 Order name: IV Saline Lock; Complete Time: 16:20 pm06/27 14:28 Order name: Labs collected and sent; Complete Time: 16:20 pm1 06/27 14:28 Order name: O2 Per Protocol; Complete Time: 16:20 pm1 06/27 14:28 Order name: O2 Sat Monitoring; Complete Time: 16:20 pm06/27 14:28 Order name: Orthostatics pm1 Administered Medications: 14:55 Drug: NS 0.9% 1000 ml Route: IV; Rate: 1000 ml; Site: right hand; jl7 16:00 Follow up: Response: No adverse reaction; IV Status: Completed infusion; IV Intake: jl7 1000ml Disposition: 06/28 09:02 Co-signature as Attending Physician, Ananth Arcos MD I agree with the assessment and riya plan of care. Disposition: 06/27/20 16:09 Discharged to Home. Impression: Dehydration, Nausea and vomiting. - Condition is Stable. - Discharge Instructions: Dehydration, Adult, Hyperventilation, Nausea and Vomiting, Adult, Rehydration, Adult. - Medication Reconciliation Form, Thank You Letter, Antibiotic Education, Prescription Opioid Use form. - Follow up: Emergency Department; When: As needed; Reason: Worsening of condition. Follow up: Private Physician; When: 2 - 3 days; Reason: Recheck today's complaints, Continuance of care, Re-evaluation by your physician. - Problem is new. - Symptoms have improved. Signatures: Dispatcher [employer] EDMS Ananth Arcos MD MD cha Marinas, Patrick, THERAPEUTIC MASSAGE TECHNICIAN THERAPEUTIC MASSAGE TECHNICIAN pm1 July Richards RN RN jl7 Gonzalo Ross RN RN jd3 Corrections: (The following items were deleted from the chart) 06/27 16:10 16:09 06/27/2020 16:09 Discharged to Home. Impression: Dehydration. Condition is pm1 Stable. Forms are Medication Reconciliation Form, Thank You Letter, Antibiotic Education, Prescription Opioid Use. Follow up: Emergency Department; When: As needed; Reason: Worsening of condition. Follow up: Private Physician; When: 2 - 3 days; Reason: Recheck today's complaints, Continuance of care, Re-evaluation by your physician. Problem is new. Symptoms have improved. pm1 16:24 16:10 06/27/2020 16:09 Discharged to Home. Impression: Dehydration; Nausea and jl7 vomiting. Condition is Stable. Forms are Medication Reconciliation Form, Thank You Letter, Antibiotic Education, Prescription Opioid Use. Follow up: Emergency Department; When: As needed; Reason: Worsening of condition. Follow up: Private Physician; When: 2 - 3 days; Reason: Recheck today's complaints, Continuance of care, Re-evaluation by your physician. Problem is new. Symptoms have improved. pm1
--- NOTE | 2020-06-27 16:43 | RAD REPORT ---
[facility]40 pm CLINICAL HISTORY: Breast cancer COMPARISON: May 2020 FINDINGS: The lungs appear clear of acute infiltrate. The heart is normal size. A central venous li ne has its tip in the superior vena cava IMPRESSION: No acute abnormalities displayed
== END 2020-06-27 16:24 | disposition home or self-care (01) ==
LOC: ER 13:13
DX: E86.0 Dehydration (principal); R11.2 Nausea with vomiting, unspecified; F17.210 Nicotine dependence, cigarettes, uncomplicated; F12.90 Cannabis use, unspecified, uncomplicated; Z88.6 Allergy status to analgesic agent; Z85.3 Personal history of malignant neoplasm of breast
CPT/HCPCS: 93005; 85025; 80048; 36415; 83735; 85610; 80076; 84484; 83880; 71045; 96360; 99284; J7030

== ENCOUNTER 2020-08-24 07:49 | Day surgery (SDC) | payer MEDICAID ==
[2020-08-20 10:44] LABS: Absolute Lymphocytes (CBC) 1.6 K/uL (0.7-4.9); Basophils % 0.9 % (0-1.3); Hematocrit 41.9 % (36.0-45.0); Lymphocytes % 31.6 % (15.3-44.8); MPV 10.3 fL (7.6-11.3); RBC Red Blood Cell Count 5.08 M/uL (3.86-4.86)
[2020-08-20 10:53] LABS: BUN Blood Urea Nitrogen 11 mg/dL (7-18); Bicarbonate 28 mmol/L (21-32); Glucose Level 89 mg/dL (74-106); Potassium 3.6 mmol/L (3.5-5.1); Sodium Level 143 mmol/L (136-145)
--- OUTSIDE RECORDS SUMMARY | 2020-08-24 08:19 | XMS REPORT | Continuity of Care Document ---
:1975 Author Organization [facility] t Address [address] [place] [address] [address] [place] [address] Care Team Providers Name Role Phone Unavailable Unavailable Unavailable Problems This patient has no known problems. Allergies, Adverse Reactions, Alerts This patient has no known allergies or adverse reactions. Medications This patient has no known medications. Procedures This patient has no known procedures. Results Test Description Test Time Test Comments Results Result [facility] e Comments BREAST ULTRASOUND 2020-01-06 - BREAST ULTRASOUND CORE CORE BIOPSY RIGHT 13:16:29 BIOPSY RIGHTULTRASOUND GUIDED BIOPSY RIGHT BREAST WITH MARKING DEVICE INSERTED: 12/31/2019CLINICAL: Ultrasound biopsy, right breast. Comparison is made to exams dated 12/16/2019 ultrasound and 12/16/2019 mammogram - [facility]-. An ultrasound guided biopsy using [...] 01/06/2020 17:17:56Imaging Technologist: Radha Moon , [facility]- DIAG MAMM RIGHT 2019-12-31 - DIAG MAMM RIGHT CAD CAD DIGITAL 11:45:16 DIGITALUNILATERAL RIGHT DIGITAL DIAGNOSTIC MAMMOGRAM WITH CAD POST-PROCEDURE IMAGING FOR MARKER PLACEMENT: 12/31/2019CLINICAL: Post clip. Current mammographic images were evaluated by either a [employer] M-Vu or a [employer] ImageChecker CAD (computer aided detection system). Comparison is made to exam dated 12/16/2019 mammogram - [facility]-. There are scattered fibroglandular tissues in the right breast. There is a marker clip in the appropriate position in the right breast at 9 o'clock. This marker clip placement is at the biopsy site. IMPRESSION: POST PROCEDURE IMAGING FOR MARKER PLACEMENTThere was a successful marker clip placement in the right breast. Kareen Quintero M.D. dm/:12/31/2019 11:45:16 Outdoor Illuminating Engineer: Brooklynn Sweeney FW, [facility]-FWMammogram BI-RADS: Post-procedure mammogram for marker placement BREAST ULTRASOUND 2019-12-16 - DIAG MAMM BILATERAL BILATERAL 14:57:56 JUAN DIEGO CAD DIGITALBILATERAL DIGITAL DIAGNOSTIC MAMMOGRAM 3D/2D WITH CAD: 12/16/2019CLINICAL: Palpable mass, right breast. Digital breast tomosynthesis was performed in addition to routine CC and MLO views. Current mammographic images were evaluated by either a [employer]P M-Vu or a [employer] ImageChecker CAD (computer aided detection system). No [...] are abnormal.Kareen Quintero M.D. dm/:12/16/2019 14:57:56 Entry: [facility] 12/17/2019 07:39:40Imaging Technologist: Julieta Hills [facility]-FWletter sent: BIRADS 4/5 Biopsy Mammogram [...] mammographic images were evaluated by either a [employer] M-Vu or a [employer] ImageChecker CAD (computer aided detection system). No [...] are abnormal.Kareen Quintero M.D. dm/:12/16/2019 14:57:56 Entry: [facility] 12/17/2019 07:39:40Imaging Technologist: Lo THOMSON, [facility]-FWletter sent: BIRADS 4/5 Biopsy Mammogram BI-RADS: 0 Incomplete: Additional Imaging Evaluation Needed Ultrasound BI-RADS: 5 Highly suggestive of malignancy
[2020-08-24] MEDS ORDERED: Ringers Lactate 1,000 ML IV ONE (08:49)
[2020-08-24] MEDS ORDERED: CEFAZOLIN/SWI 1gm 1 GM/10 ML SYR ONE (08:49)
[2020-08-24] MEDS ORDERED: CELECOXIB 100 MG CAPSULE PO SCH (09:00)
[2020-08-24] MEDS ORDERED: GABAPENTIN 400 MG CAP PO ONE (09:00)
[2020-08-24] MEDS ORDERED: ACETAMINOPHEN 500 MG TAB ONE (09:01)
[2020-08-24] MEDS ORDERED: ROCURONIUM 50 MG/5 ML VIAL IV ONE (09:31)
[2020-08-24] MEDS ORDERED: MIDAZOLAM HCL 2 MG/2 ML INJ ONE (09:31)
[2020-08-24] MEDS ORDERED: propofoL 200 MG/20 ML VIAL IV ONE (09:31)
[2020-08-24] MEDS ORDERED: LIDOCAINE 1% MPF 5 ML VIAL ONE (09:31)
[2020-08-24] MEDS ORDERED: FENTANYL CITR 250 MCG/5 ML ONE (09:33)
[2020-08-24] MEDS ORDERED: WATER FOR INJ,STERILE 10 ML IV SCH (10:00)
[2020-08-24] MEDS ORDERED: ALTEPLASE 2 MG/VIAL IV SCH (10:00)
[2020-08-24] MEDS ORDERED: dexAMETHasone 4 MG/ML VIAL ONE (10:48)
[2020-08-24] MEDS ORDERED: KETOROLAC 30 MG/ML INJ ONE (10:48)
[2020-08-24] MEDS ORDERED: ONDANSETRON 4 MG/2 ML VIAL ONE ×2 (10:48→13:07)
[2020-08-24] MEDS ORDERED: MORPHINE 10 MG/ML VIAL ONE (12:23)
[2020-08-24] MEDS: HYDROMORPHONE HCL 1 MG/ML INJ ONE ×4 (12:50→13:05)
--- NOTE | 2020-08-24 13:19 | OP ---
Date of Procedure: 08/24/2020 Surgeon: Wilver Rodriguez MD Newspaper Delivery Counselor: SHAQUILLE Dougherty. Preoperative Diagnosis: Right breast cancer. Postoperative Diagnosis: Right breast cancer. Procedure: Right modified radical mastectomy and left simple mastectomy. Estimated Blood Loss: Minimal. Specimen: Right breast and right axillary dissection of left breast. Finding: As above. Anesthesia: General. Complications: None. Drains: MAINOR #10, two on the right side, one on the left side. Condition: The patient tolerated the procedure in stable condition and taken to Recovery in good gen eral condition. Procedure In Detail: The patient was brought to the OR and placed in supine position. General anest hesia begun. The patient was prepped and draped in usual sterile fashion. The patient then had a Le xiscan made approximately 20 x 10 cm on the right breast to include the nipple-areolar complex in the standard fashion. Subcutaneous tissues divided and then flaps were created superior to the conjoine d tendon superiorly to the clavicle, inferiorly to the inframammary fold, medially to the sternal bor erin, and laterally to the anterior border of the latissimus dorsi, and all breast tissue of the pecto ralis fascia removed. Axillary dissection proceeded identifying the axillary vein, long thoracic catarino rovascular bundle and the thoracodorsal neurovascular bundle and all lymph nodes in this area, as wel l as Michelle's nodes underneath the pec was removed. Clips and cautery and 3-0 silk sutures were used as needed. The entire wound was irrigated, bleeding was controlled with cautery. Then, Hitesh-Pra tt drain 10 flat placed under the flap as well as the axilla, secured with 3-0 nylon. Then, 2-0 vendor manager anup and 3-0 chromic were used to close the subcutaneous tissue including the skin and then a very sim ilar incision was made on the left side and a simple mastectomy was done. There was no axillary diss ection done and just a single drain underneath the flap was placed and secured and then sterile dress ing was applied. The patient was awakened and taken to Recovery in good general condition. Discharge Note: The patient to go to Day Surgery and home when stable. Disposition: Home. Condition: Stable. Discharge Instructions: Resume home medications and diet. Activity as tolerated. No heavy lifting. Keep dressing clean and dry. Sponge bathe only. Ultracet 1 tablet p.o. q.4 p.r.n. pain. Keflex _ mg p.o. q.6. Record MAINOR output q.12, bring record to office. p.r.n. incentive s dennise. /NATANAELL Voice ID: [id number] Report ID: [id number]
[2020-08-24] MEDS ORDERED: TRAMADOL 37.5mg/APAP 325mg PER TAB ONE (14:44)
[2020-08-24] MEDS ORDERED: TRAMADOL 37.5mg/APAP 325mg PER TAB PO ONE (14:45)
[2020-08-24] MEDS ORDERED: ONDANSETRON 4 MG (ODT) TAB PO ONE (15:00)
[2020-08-24] MEDS ORDERED: ONDANSETRON 4 MG (ODT) TAB ONE (15:05)
[2020-08-24 15:14] VITALS: TEMP 97.5; O2SAT 96
[2020-08-24 15:15] VITALS: BP 132/48
== END 2020-08-24 15:25 | disposition home or self-care (01) ==
LOC: OR 07:49
PROVIDERS: ATTEND Surgery
PROC: 0HTT0ZZ Resection of Right Breast, Open Approach (ICD-10-PCS; principal; 2020-08-24 09:15)
PROC: 0HTU0ZZ Resection of Left Breast, Open Approach (ICD-10-PCS; 2020-08-24 09:15)
DX: C50.911 Malignant neoplasm of unspecified site of right female breast (principal); Z20.828 Contact with and (suspected) exposure to other viral communicable diseases
CPT/HCPCS: 85025; 80048; 36415; 88329; 88307 ×2; 19307; 19303; U0002; J2704; J1100; J2250; J3010; J2997; J1170 ×2; J0690; J7120; J2405 ×2; 88305

== ENCOUNTER 2020-08-26 09:32 | Day surgery (SDC) | payer MEDICAID, OTHER ==
--- OUTSIDE RECORDS SUMMARY | 2020-08-26 10:06 | XMS REPORT | Continuity of Care Document ---
:1975 Author Organization [facility] t Address [address] [place] [address] [address] [place] [address] Care Team Providers Name Role Phone Unavailable Unavailable Unavailable Problems This patient has no known problems. Allergies, Adverse Reactions, Alerts This patient has no known allergies or adverse reactions. Medications This patient has no known medications. Procedures This patient has no known procedures. Results Test Description Test Time Test Comments Results Result [facility] e Comments BREAST ULTRASOUND 2020-01-06 - BREAST ULTRASOUND CORE CORE BIOPSY RIGHT 13:16:29 BIOPSY RIGHTULTRASOUND GUIDED BIOPSY RIGHT BREAST WITH MARKING DEVICE INSERTED: 12/31/2019CLINICAL: Ultrasound biopsy, right breast. Comparison is made to exams dated 12/16/2019 ultrasound and 12/16/2019 mammogram - [facility]-. An ultrasound guided biopsy using [...] 01/06/2020 17:17:56Imaging Technologist: Radha Moon , [facility]- DIAG MAMM RIGHT 2019-12-31 - DIAG MAMM RIGHT CAD CAD DIGITAL 11:45:16 DIGITALUNILATERAL RIGHT DIGITAL DIAGNOSTIC MAMMOGRAM WITH CAD POST-PROCEDURE IMAGING FOR MARKER PLACEMENT: 12/31/2019CLINICAL: Post clip. Current mammographic images were evaluated by either a [employer] M-Vu or a [employer] ImageChecker CAD (computer aided detection system). Comparison is made to exam dated 12/16/2019 mammogram - [facility]-. There are scattered fibroglandular tissues in the right breast. There is a marker clip in the appropriate position in the right breast at 9 o'clock. This marker clip placement is at the biopsy site. IMPRESSION: POST PROCEDURE IMAGING FOR MARKER PLACEMENTThere was a successful marker clip placement in the right breast. Kareen Quintero M.D. dm/:12/31/2019 11:45:16 Investigation Manager: Brooklynn Sweeney FW, [facility]-FWMammogram BI-RADS: Post-procedure mammogram for marker placement BREAST ULTRASOUND 2019-12-16 - DIAG MAMM BILATERAL BILATERAL 14:57:56 JUAN DIEGO CAD DIGITALBILATERAL DIGITAL DIAGNOSTIC MAMMOGRAM 3D/2D WITH CAD: 12/16/2019CLINICAL: Palpable mass, right breast. Digital breast tomosynthesis was performed in addition to routine CC and MLO views. Current mammographic images were evaluated by either a [employer] M-Vu or a [employer] ImageChecker CAD (computer aided detection system). No [...] are abnormal.Kareen Quintero M.D. dm/:12/16/2019 14:57:56 Entry: [facility] 12/17/2019 07:39:40Imaging Technologist: Julieta Hills [facility]-FWletter sent: BIRADS 4/5 Biopsy Mammogram [...] mammographic images were evaluated by either a [employer] M-Vu or a MC[employer] ImageChecker CAD (computer aided detection system). No [...] are abnormal.Kareen Quintero M.D. dm/:12/16/2019 14:57:56 Entry: [facility] 12/17/2019 07:39:40Imaging Technologist: oL THOMSON, [facility]-FWletter sent: BIRADS 4/5 Biopsy Mammogram BI-RADS: 0 Incomplete: Additional Imaging Evaluation Needed Ultrasound BI-RADS: 5 Highly suggestive of malignancy
[2020-08-26] MEDS ORDERED: HEPARIN 500 UNIT/5 ML SYR IV ONE (10:13)
[2020-08-26 10:36] VITALS: BP 143/73; TEMP 98; O2SAT 100; BMI 33.1
== END 2020-08-26 10:20 | disposition home or self-care (01) ==
LOC: DS 09:32
PROVIDERS: ATTEND Surgery
DX: Z45.2 Encounter for adjustment and management of vascular access device (principal)
CPT/HCPCS: 96523; J1642

== ENCOUNTER 2020-11-19 10:45 | Emergency (ER) | payer OTHER ==
--- OUTSIDE RECORDS SUMMARY | 2020-11-19 10:48 | XMS REPORT | Continuity of Care Document ---
:1975 Author Organization [facility] t Address [address] [place] [address] [address] [place] [address] Care Team Providers Name Role Phone Unavailable Unavailable Unavailable Problems This patient has no known problems. Allergies, Adverse Reactions, Alerts This patient has no known allergies or adverse reactions. Medications This patient has no known medications. Procedures This patient has no known procedures. Encounters Start End Encounter Admission Attending Care Care Encounter Source Date/Time Date/Time Type Type Clinicians Facility Department ID 2020-11-11 2020-11-11 [facility] [id number] 00:00:00 00:00:00 [facility] 2020-10-27 2020-10-27 [id number] Results Test Description Test Time Test Comments Results Result [facility] e Comments BREAST ULTRASOUND 2020-01-06 - BREAST ULTRASOUND CORE CORE BIOPSY RIGHT 13:16:29 BIOPSY RIGHTULTRASOUND GUIDED BIOPSY RIGHT BREAST WITH MARKING DEVICE INSERTED: 12/31/2019CLINICAL: Ultrasound biopsy, right breast. Comparison is made to exams dated 12/16/2019 ultrasound and 12/16/2019 mammogram - [facility]. An ultrasound guided biopsy using real-time ultrasound [...] Entry: - 01/06/2020 17:17:56Imaging Technologist: Radha Moon FW, [facility] RIGHT 2019-12-31 - DIAG MAMM RIGHT CAD CAD DIGITAL 11:45:16 DIGITALUNILATERAL RIGHT DIGITAL DIAGNOSTIC MAMMOGRAM WITH CAD POST-PROCEDURE IMAGING FOR MARKER PLACEMENT: 12/31/2019CLINICAL: Post clip. Current mammographic images were evaluated by either a [employer] M-Vu or a [employer] CAD (computer aided detection system). Comparison is made to exam dated [facility]/16/2019 [facility]. There are scattered fibroglandular tissues in the right breast. There is a marker clip in the appropriate position in the right breast at 9 o'clock. This marker clip placement is at the biopsy site. IMPRESSION: POST PROCEDURE IMAGING FOR MARKER PLACEMENTThere was a successful marker clip placement in the right breast. Kareen Quintero M.D. dm/:12/31/2019 11:45:16 Back Filler Operator: Brooklynn Sweeney FW, [facility]RADS: Post-procedure mammogram for marker placement BREAST ULTRASOUND 2019-12-16 - DIAG MAMM BILATERAL BILATERAL 14:57:56 [facility]IE[facility] CAD DIGITALBILATERAL DIGITAL DIAGNOSTIC MAMMOGRAM 3D/2D WITH CAD: 12/16/2019CLINICAL: Palpable mass, right breast. Digital breast tomosynthesis was performed in addition to routine CC and MLO views. Current mammographic images were evaluated by either a [employer] M-Vu or a [employer] CAD (computer aided detection system). No prior [...] are abnormal.Kareen Quintero M.D. dm/:12/16/2019 14:57:56 Entry: - 12/17/2019 07:39:40Imaging Technologist: Lo THOMSON, [facility] sent: BIRADS 4/5 Biopsy Mammogram [...] mammographic images were evaluated by either a [employer] M-Vu or a [employer] [place] [employer] CAD (computer aided detection system). No [...] are abnormal.Kareen Quintero M.D. dm/:12/16/2019 14:57:56 Entry: law - 12/17/2019 07:39:40Imaging Technologist: Lo THOMSON, [facility] sent: BIRADS 4/5 Biopsy Mammogram BI-RADS: 0 Incomplete: Additional Imaging Evaluation Needed Ultrasound BI-RADS: 5 Highly suggestive of malignancy
[2020-11-19] MEDS ORDERED: DIAZEPAM 5 MG TABLET ONE (11:27)
[2020-11-19] MEDS ORDERED: IBUPROFEN 400 MG TAB ONE (11:27)
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
[2020-11-19 13:01] VITALS: TEMP 98.2
[2020-11-19 13:02] VITALS: BP 112/61; O2SAT 99
== END 2020-11-19 12:56 | disposition home or self-care (01) ==
LOC: ER 10:45
DX: S39.012A Strain of muscle, fascia and tendon of lower back, initial encounter (principal); S29.012A Strain of muscle and tendon of back wall of thorax, initial encounter; V49.40XA Driver injured in collision with unspecified motor vehicles in traffic accident, initial encounter; Z88.5 Allergy status to narcotic agent; Z85.3 Personal history of malignant neoplasm of breast
CPT/HCPCS: 72100; 99284

== ENCOUNTER 2022-06-02 10:52 | Observation (INO) | payer OTHER ==
[2022-06-02] MEDS ORDERED: NA CHLORIDE 0.9% 1,000 ML ONE (11:17)
[2022-06-02] MEDS ORDERED: ASPIRIN EC 81 MG TAB PO ONE (11:17)
--- NOTE | 2022-06-02 11:32 | RAD REPORT ---
EXAM DESCRIPTION: RAD - Chest Single View - 06/02/2022 11:25 am CLINICAL HISTORY: CHEST PAIN COMPARISON: Chest Single View dated 12/13/2021; Chest Pa And Lat (2 Views) dated 12/13/2021; Chest Singl e View dated 06/27/2020; Chest Single View dated 05/25/2020 FINDINGS: Lines: None. Lungs: No evidence of edema or pneumonia. Pleural: No significant pleural effusions or pneumothorax. Cardiac: The heart size is within normal limits. Bones: No acute fractures. Other: IMPRESSION: No acute cardiopulmonary disease.
[2022-06-02 11:45] LABS: Absolute Lymphocytes (CBC) 2.3 K/uL (0.7-4.9); MCV 85.2 fL (80-100); MPV 9.1 fL (7.6-11.3); RBC Red Blood Cell Count 4.47 M/uL (3.86-4.86)
[2022-06-02 11:47] LABS: Protime INR 0.98
[2022-06-02 11:53] LABS: SARS-CoV-2 Antigen Rapid Res Negative (Negative)
[2022-06-02 12:05] LABS: ALT/SGPT 52 U/L (12-78); AST/SGOT 37 U/L (15-37); Albumin 3.5 g/dL (3.4-5.0); Alkaline Phosphatase 68 U/L (45-117); BUN Blood Urea Nitrogen 10 mg/dL (7-18); Bicarbonate 26 mmol/L (21-32); Bilirubin Total 0.3 mg/dL (0.2-1.0); Glomerular Filtration Rate 114 ml/min (=/>90); Glucose Level 93 mg/dL (74-106); Magnesium 1.9 mg/dL (1.8-2.4); NT PRO-BNP 93 pg/mL (<125); Potassium 3.8 mmol/L (3.5-5.1); Sodium Level 141 mmol/L (136-145); Troponin High Sensitivity 4.7 pg/mL (<58.9)
[2022-06-02 12:12] LABS: Bilirubin Direct < 0.1 mg/dL (0-0.2)
[2022-06-02 12:22] LABS: Urine Blood Trace-intact (Negative); Urine Glucose Negative (Negative); Urine Protein Negative (Negative)
--- NOTE | 2022-06-02 12:57 | EDPHYS ---
Physician Documentation [facility] Name: Sujey Dunlap Age: 47 yrs Sex: Female : 1975 Arrival Date: 06/02/2022 Time: 10:53 Bed 7 Private MD: [facility] ED Physician Ananth Arcos HPI: 06/02 12:43 This 47 yrs old Female presents to ER via Ambulatory with complaints of Chest riya Tightness, Palpitations. 12:43 The patient or guardian reports chest pain that is located primarily in the anterior [facility] chest wall. Onset: 2 day(s) ago. The pain does not radiate. Associated signs and symptoms: Pertinent positives: cough, shortness of breath. The chest pain is described as a heaviness, squeezing. Duration: The patient or guardian reports multiple episodes, that wax and wane. Modifying factors: The symptoms are alleviated by nothing. the symptoms are aggravated by nothing. Severity of pain: At its worst the pain was mild moderate in the emergency department the pain is unchanged. The patient has not experienced similar symptoms in the past. 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 - Social history:: Smoking status: Patient/guardian denies using tobacco products. - Family history:: not pertinent. ROS: 12:43 Constitutional: Negative for fever, chills, and weight loss, Eyes: Negative for injury, riya pain, redness, and discharge, ENT: Negative for injury, pain, and discharge, Neck: Negative for injury, pain, and swelling, Cardiovascular: Negative for chest pain, palpitations, and edema, Abdomen/GI: Negative for abdominal pain, nausea, vomiting, diarrhea, and constipation, Back: Negative for injury and pain, : Negative for injury, bleeding, discharge, and swelling, MS/Extremity: Negative for injury and deformity, Skin: Negative for injury, rash, and discoloration, Neuro: Negative for headache, weakness, numbness, tingling, and seizure. 12:43 Respiratory: Positive for cough, shortness of breath, wheezing, expiratory. Exam: 12:43 Constitutional: This is a well developed, well nourished patient who is awake, alert, riya and in no acute distress. Head/Face: Normocephalic, atraumatic. Eyes: Pupils equal round and reactive to light, extra-ocular motions intact. Lids and lashes normal. Conjunctiva and sclera are non-icteric and not injected. Cornea within normal limits. Periorbital areas with no swelling, redness, or edema. ENT: Nares patent. No nasal discharge, no septal abnormalities noted. Tympanic membranes are normal and external auditory canals are clear. Oropharynx with no redness, swelling, or masses, exudates, or evidence of obstruction, uvula midline. Mucous membranes moist. Neck: Trachea midline, no thyromegaly or masses palpated, and no cervical lymphadenopathy. Supple, full range of motion without nuchal rigidity, or vertebral point tenderness. No Meningismus. Chest/axilla: Normal chest wall appearance and motion. Nontender with no deformity. No lesions are appreciated. Cardiovascular: Regular rate and rhythm with a normal S1 and S2. No gallops, murmurs, or rubs. Normal PMI, no JVD. No pulse deficits. Abdomen/GI: Soft, non-tender, with normal bowel sounds. No distension or tympany. No guarding or rebound. No evidence of tenderness throughout. Back: No spinal tenderness. No costovertebral tenderness. Full range of motion. Skin: Warm, dry with normal turgor. Normal color with no rashes, no lesions, and no evidence of cellulitis. MS/ Extremity: Pulses equal, no cyanosis. Neurovascular intact. Full, normal range of motion. Neuro: Awake and alert, GCS 15, oriented to person, place, time, and situation. Cranial nerves II-XII grossly intact. Motor strength 5/5 in all extremities. Sensory grossly intact. Cerebellar exam normal. Normal gait. Psych: Awake, alert, with orientation to person, place and time. Behavior, mood, and affect are within normal limits. 12:43 Respiratory: the patient does not display signs of respiratory distress, Respirations: normal, no acute changes, Breath sounds: bronchial sounds, that are moderate, decreased breath sounds, that are mild, are scattered, rhonchi, that are moderate, are scattered, stridor, is not appreciated, + upper airway congestion. wheezing: expiratory is heard diffusely. 13:03 ECG was reviewed by the Attending Physician. riya Vital Signs: 10:59 BP 128 / 79; Pulse 84; Resp 18; Temp 98.5(TE); Pulse Ox 100% on R/A; Weight 88.45 kg iw (R); Height 5 ft. 4 in. (162.56 cm); Pain 3/10; 12:37 BP 140 / 71; Pulse 82; Resp 20; Pulse Ox 100% on R/A; tw2 15:48 BP 136 / 74; Pulse 107; Resp 20; Pulse Ox 99% on R/A; tw2 17:00 BP 142 / 99; Pulse 115; Resp 19; Pulse Ox 98% on R/A; tw2 19:15 BP 146 / 93; Pulse 110; Resp 18; Pulse Ox 99% on R/A; Pain 0/10; kl 10:59 Body Mass Index 33.47 (88.45 kg, 162.56 cm) iw MDM: 11:04 Patient medically screened. riya 12:57 Differential diagnosis: abnormal EKG, acute myocardial infarction, acute pericarditis, riya anxiety, coronary artery disease congestive heart failure pleurisy, pneumonia, pulmonary embolus, stable angina, unstable angina. HEART Score: History: Slightly Suspicious (0), ECG: Non specific repolarization disturbance / LBTB / PM (1), Age: > 45 and < 65 years (1), Risk Factors: 1 or 2 risk factors (1), [+ Family HX] [Obesity] Troponin: < or = 1 x Normal Limit (0), Total Score = 2. The patient was given aspirin in the Emergency Department. The patient's deep vein thrombosis risk score was calculated as follows: Total Score: 0. This patient was found to be at low risk for a deep vein thrombosis by using the Well's assessment criteria. The patient's pulmonary embolism risk score was calculated as follows: Total Score: 0-2 points. This patient was found to be at low risk for a pulmonary embolism by using the Well's assessment criteria. HUGO Risk Score: TOTAL SCORE = 0. Data reviewed: vital signs, nurses notes, lab test result(s), EKG, radiologic studies, CT scan, plain films. 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 Test interpretation: by ED physician or midlevel provider: ECG, plain radiologic studies. 06/02 11:06 Order name: Basic Metabolic Panel; Complete Time: 12:38 [facility] 06/02 11:06 Order name: CBC with Diff; Complete Time: 12:38 [facility] 06/02 11:06 Order name: LFT's; Complete Time: 12:38 [facility] 06/02 11:06 Order name: Magnesium; Complete Time: 12:38 [facility] 06/02 11:06 Order name: NT PRO-BNP; Complete Time: 12:38 [facility] 06/02 11:06 Order name: PT-INR; Complete Time: 12:38 [facility] 06/02 11:06 Order name: Troponin HS; Complete Time: 12:38 [facility] 06/02 11:06 Order name: D-Dimer; Complete Time: 12:38 [facility] 06/02 11:06 Order name: TSH; Complete Time: 12:38 [facility] 06/02 11:06 Order name: SARS RAPID; Complete Time: 12:38 [facility] 06/02 11:06 Order name: UDS; Complete Time: 14:47 [facility] 06/02 11:23 Order name: Flu; Complete Time: 12:38 06/02 12:22 Order name: Urine Dipstick-Ancillary; Complete Time: 12:38 [facility] 06/02 12:42 Order name: Blood Culture Adult (2) riya 06/02 11:06 Order name: XRAY Chest (1 view); Complete Time: 12:38 [facility] 06/02 11:06 Order name: EKG; Complete Time: 11:11 [facility] 06/02 11:06 Order name: Cardiac monitoring; Complete Time: 11:08 [facility] 06/02 11:06 Order name: EKG - Nurse/Tech; Complete Time: 11:08 [facility] 06/02 11:06 Order name: IV Saline Lock; Complete Time: 11:14 [facility] 06/02 12:51 Order name: CT Chest For PE Angio; Complete Time: 14:47 [facility] 06/02 11:06 Order name: Labs collected and sent; Complete Time: 11:14 [facility] 06/02 11:06 Order name: O2 Per Protocol; Complete Time: 11:08 [facility] 06/02 11:06 Order name: O2 Sat Monitoring; Complete Time: 11:08 [facility] 06/02 11:06 Order name: Urine Dipstick-Ancillary (obtain specimen); Complete Time: 12:53 [facility] 06/02 11:06 Order name: Urine Test (obtain specimen); Complete Time: 12:53 [facility] 06/02 13:41 Order name: Labs - recollect needed: Blood cultures need to be recollected- Red top em1 must be filled with 2ml; Complete Time: 16:18 EC:03 Rate is 82 beats/min. Rhythm is regular. QRS Ray is Normal. [place] interval is normal. QRS riya interval is normal. QT interval is prolonged at 509 msec. No Q waves. T waves are Normal. No ST changes noted. Clinical impression: NSR w/ Non-specific ST/T Changes and No evidence of ischemia. Interpreted by me. Reviewed by me. Administered Medications: 11:12 Drug: NS 0.9% 1000 ml Route: IV; Rate: 1 bolus; Site: left hand; tw2 12:53 Follow up: Response: No adverse reaction; IV Status: Completed infusion; IV Intake: tw2 1000ml 11:12 Drug: Aspirin 81 mg Route: PO; tw2 11:37 Follow up: Response: No adverse reaction tw2 11:42 Follow up: Response: No adverse reaction ap3 13:25 Drug: Rocephin (cefTRIAXone) 1 grams Route: IV; Rate: per protocol; Site: left hand; ap3 13:46 Follow up: IV Status: Completed infusion ap3 13:25 Drug: Zithromax (azithromycin) 500 mg Route: PO; ap3 13:46 Follow up: Response: No adverse reaction ap3 13:25 Drug: SOLU-Medrol (methylPrednisoLONE) 125 mg Route: IVP; Site: left hand; ap3 13:46 Follow up: Response: No adverse reaction ap3 13:25 Drug: Lovenox (enoxaparin) 1 mg/kg Route: Sub-Q; Site: abdomen; ap3 13:47 Follow up: Response: No adverse reaction ap3 13:25 Drug: Xopenex (levalbuterol) 3.75 mg Route: Inhalation; ap3 13:25 Drug: AtroVENT (ipratropium) Aerosol 0.5 mg Route: Inhalation; ap3 13:25 Drug: Pepcid (famotidine) 20 mg Route: IVP; Site: left hand; ap3 13:47 Follow up: Response: No adverse reaction ap3 21:32 Drug: Albuterol - atroVENT (ipratropium) (3:1) (2.5 mg - 0.5 mg) 3 ml Route: Nebulizer; jb4 21:55 Follow up: Response: No adverse reaction; Marked relief of symptoms jb4 Disposition Summary: 06/02/22 12:56 Hospitalization Ordered Hospitalization Status: Observation [facility] Provider: Reed Wynn cha Condition: Fair riya Problem: new riya Symptoms: have improved riya Bed/Room Type: Standard [facility] Location: [facility] ER HOLD(06/02/22 19:58) Room Assignment: ERHOLD-(06/02/22 19:58) Diagnosis - Chest pain, unspecified riya - Dyspnea riya Discharge Instructions: - Discharge Summary Sheet tw2 Forms: - Medication Reconciliation Form riya - Work release form tw2 - SBAR form [facility] Signatures: Dispatcher [employer] EDJacklyn Jacobs RN RN mw Anderson, Corey, MD MD cha Williams, Irene RN Maynor Oneal em1 Maria Elena Coleman RN RN tw2 Shmuel Blood RN RN jb4 Anette Kathleen RN RN ap3 Lisandra Nelson PA PA sb3 Corrections: (The following items were deleted from the chart) 19:58 12:56 Telemetry/MedSurg (observation) [facility] 19:58 12:56 [facility]
--- NOTE | 2022-06-02 12:57 | ER ---
Nurse's Notes [facility] Name: Sujey Dunlap Age: 47 yrs Sex: Female : 1975 Arrival Date: 06/02/2022 Time: 10:53 Bed 7 Private MD: Nasir Saini Diagnosis: Chest pain, unspecified;Dyspnea Presentation: 06/02 10:59 Chief complaint: Patient states: I started having chest pain this morning at work with iw shortness of breath. I was diagnosed with FLU B last week and I am not sure if it is from coughing so much. Coronavirus screen: At this time, the client does not indicate any symptoms associated with coronavirus-19. Ebola Screen: No symptoms or risks identified at this time. Initial Sepsis Screen: Does the patient meet any 2 criteria? No. Patient's initial sepsis screen is negative. Does the patient have a suspected source of infection? No. Patient's initial sepsis screen is negative. Risk Assessment: Do you want to hurt yourself or someone else?. Onset of symptoms is unknown. 10:59 Method Of Arrival: Ambulatory iw 10:59 Acuity: MARQUEZ 3 iw Triage Assessment: 11:01 General: Appears in no apparent distress. uncomfortable, well groomed, well developed, iw Behavior is calm, cooperative, appropriate for age. Pain: Complains of pain in mid-sternal area Pain does not radiate. Pain currently is 3 out of 10 on a pain scale. Quality of pain is described as crampy, Pain began this morning unsure time. EENT: No deficits noted. No signs and/or symptoms were reported regarding the EENT system. Neuro: Level of Consciousness is awake, alert, obeys commands, Oriented to person, place, time, situation. Cardiovascular: Capillary refill Patient's skin is warm and dry. Chest pain. Respiratory: Reports shortness of breath on exertion cough that is non-productive, Airway is patent Trachea midline Respiratory effort is even, unlabored, Respiratory pattern is regular, symmetrical. GI: No deficits noted. No signs and/or symptoms were reported involving the gastrointestinal system. : No deficits noted. No signs and/or symptoms were reported regarding the genitourinary system. Derm: Skin is intact, is healthy with good turgor, pt has bilat mastectomy scars. Musculoskeletal: No deficits noted. No signs and/or symptoms reported regarding the musculoskeletal system. 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 - Social history:: Smoking status: Patient/guardian denies using tobacco products. - Family history:: not pertinent. Screenin:00 Abuse screen: Denies threats or abuse. Nutritional screening: No deficits noted. ap3 Tuberculosis screening: No symptoms or risk factors identified. 11:05 Fall Risk None identified. tw2 Assessment: 11:00 General: Appears in no apparent distress. Behavior is calm, cooperative, appropriate ap3 for age. Neuro: Level of Consciousness is awake, alert, obeys commands, Oriented to person, place, time, situation, Appropriate for age. Cardiovascular: Reports chest pain, Patient's skin is warm and dry. Respiratory: Airway is patent Respiratory effort is even, unlabored, Respiratory pattern is regular, symmetrical. 15:48 Reassessment: Patient appears in no apparent distress at this time. No changes from tw2 previously documented assessment. Patient and/or family updated on plan of care and expected duration. Pain level reassessed. Patient is alert, oriented x 3, equal unlabored respirations, skin warm/dry/pink. 17:01 Reassessment: Patient appears in no apparent distress at this time. No changes from tw2 previously documented assessment. Patient and/or family updated on plan of care and expected duration. Pain level reassessed. Patient is alert, oriented x 3, equal unlabored respirations, skin warm/dry/pink. 21:32 Reassessment: Patient appears in no apparent distress at this time. Patient and/or jb4 family updated on plan of care and expected duration. Pain level reassessed. Patient is alert, oriented x 3, equal unlabored respirations, skin warm/dry/pink. Pt signed ama form, PT informed that symptoms could return or worsen up to the point of . Pt verbalized understanding of risk, verbalized desire to leave AMA. Vital Signs: 10:59 BP 128 / 79; Pulse 84; Resp 18; Temp 98.5(TE); Pulse Ox 100% on R/A; Weight 88.45 kg iw (R); Height 5 ft. 4 in. (162.56 cm); Pain 3/10; 12:37 BP 140 / 71; Pulse 82; Resp 20; Pulse Ox 100% on R/A; tw2 15:48 BP 136 / 74; Pulse 107; Resp 20; Pulse Ox 99% on R/A; tw2 17:00 BP 142 / 99; Pulse 115; Resp 19; Pulse Ox 98% on R/A; tw2 19:15 BP 146 / 93; Pulse 110; Resp 18; Pulse Ox 99% on R/A; Pain 0/10; kl 10:59 Body Mass Index 33.47 (88.45 kg, 162.56 cm) iw ED Course: 10:53 Patient arrived in ED. as 10:55 Nasir Saini DO is Private Physician. as 11:00 Anette Kathleen, RN is Primary Nurse. ap3 11:00 Patient has correct armband on for positive identification. Placed in gown. Bed in low ap3 position. Call light in reach. Side rails up X2. ekg monitor on. Pulse ox on. NIBP on. 11:01 Triage completed. iw 11:01 Arm band placed on left wrist. iw 11:03 Arm band placed on right wrist. ap3 11:03 Patient maintains SpO2 saturation greater than 95% on room air. ap3 11:04 Ananth Arcos MD is Attending Physician. riya 11:27 XRAY Chest (1 view) In Process Unspecified. EDMS 11:33 EKG done, by ED staff, reviewed by Ananth Arcos MD. jw7 12:53 Reed Wynn is Hospitalizing Provider. riya 13:40 CT Chest For PE Angio In Process Unspecified. EDMS 18:13 No provider procedures requiring assistance completed. ap3 19:27 Primary Nurse role handed off by Anette Kathleen, RN em1 21:32 IV discontinued, intact, bleeding controlled, No redness/swelling at site. Pressure jb4 dressing applied. Administered Medications: 11:12 Drug: NS 0.9% 1000 ml Route: IV; Rate: 1 bolus; Site: left hand; tw2 12:53 Follow up: Response: No adverse reaction; IV Status: Completed infusion; IV Intake: tw2 1000ml 11:12 Drug: Aspirin 81 mg Route: PO; tw2 11:37 Follow up: Response: No adverse reaction tw2 11:42 Follow up: Response: No adverse reaction ap3 13:25 Drug: Rocephin (cefTRIAXone) 1 grams Route: IV; Rate: per protocol; Site: left hand; ap3 13:46 Follow up: IV Status: Completed infusion ap3 13:25 Drug: Zithromax (azithromycin) 500 mg Route: PO; ap3 13:46 Follow up: Response: No adverse reaction ap3 13:25 Drug: SOLU-Medrol (methylPrednisoLONE) 125 mg Route: IVP; Site: left hand; ap3 13:46 Follow up: Response: No adverse reaction ap3 13:25 Drug: Lovenox (enoxaparin) 1 mg/kg Route: Sub-Q; Site: abdomen; ap3 13:47 Follow up: Response: No adverse reaction ap3 13:25 Drug: Xopenex (levalbuterol) 3.75 mg Route: Inhalation; ap3 13:25 Drug: AtroVENT (ipratropium) Aerosol 0.5 mg Route: Inhalation; ap3 13:25 Drug: Pepcid (famotidine) 20 mg Route: IVP; Site: left hand; ap3 13:47 Follow up: Response: No adverse reaction ap3 21:32 Drug: Albuterol - atroVENT (ipratropium) (3:1) (2.5 mg - 0.5 mg) 3 ml Route: Nebulizer; jb4 21:55 Follow up: Response: No adverse reaction; Marked relief of symptoms jb4 Medication: 11:05 VIS not applicable for this client. tw2 Intake: 12:53 IV: 1000ml; Total: 1000ml. tw2 Outcome: 12:56 Decision to Hospitalize by Provider. riya 21:57 AMA AMA form signed jb4 21:57 Condition: stable 21:57 Discharge instructions given to patient, Instructed on follow up and referral plans. Demonstrated understanding of instructions. 21:58 Patient left the ED. jb4 Signatures: Dispatcher [employer] EDMS Cyndee Gloria RN RN kl Anderson, Corey, MD MD cha Martinez, Amelia as Williams, Irene, RN RN iw Martinez, Eric em1 Maria Elena Coleman RN RN tw2 Shmuel Blood RN RN jb4 Anette Kathleen RN RN ap3 Geovanna Carrillo jw7
[2022-06-02] MEDS ORDERED: AZITHROMYCIN 250 MG TAB ONE (13:03)
[2022-06-02] MEDS ORDERED: METHYLPREDNISOLONE 125 MG INJ ONE (13:03)
[2022-06-02] MEDS ORDERED: CEFTRIAXONE 1000 MG/VIAL ONE (13:03)
[2022-06-02] MEDS ORDERED: NA CHLORIDE 0.9% 100 ML ONE (13:04)
[2022-06-02] MEDS ORDERED: ENOXAPARIN 100 MG/ML SYR SQ ONE (13:04)
[2022-06-02] MEDS ORDERED: FAMOTIDINE 20 MG/2 ML VIAL IV ONE (13:04)
[2022-06-02] MEDS ORDERED: LEVALBUTEROL 1.25 MG/3 ML NEB ONE (13:04)
[2022-06-02] MEDS ORDERED: IPRATROPIUM BROM 0.5MG/2.5ML ONE ×2 (13:04→21:35)
[2022-06-02 13:21] LABS: Barbiturates NEGATIVE (NEGATIVE); Benzodiazepines NEGATIVE (NEGATIVE); Cocaine NEGATIVE (NEGATIVE); METHAMPHETAM NEGATIVE (NEGATIVE); Methadone NEGATIVE (NEGATIVE); Opiates NEGATIVE (NEGATIVE); Phencyclidine NEGATIVE (NEGATIVE); THC Cannibis POSITIVE (NEGATIVE)
--- NOTE | 2022-06-02 13:56 | RAD REPORT ---
EXAM DESCRIPTION: CT - Chest For Pe Angio - 06/02/2022 1:38 pm CLINICAL HISTORY: cp/dyspnea COMPARISON: Chest For Pe Angio dated 05/25/2020; Chest Single View dated 06/02/2022 TECHNIQUE: Dynamically enhanced 3 mm thick images of the chest were obtained during administration o f approximately 150mL Isovue 370 IV contrast. Coronal and oblique MIP reconstruction images were gene rated and reviewed. Exam utilizes a protocol to evaluate the pulmonary arterial tree. All CT scans are performed using dose optimization technique as appropriate and may include automated exposure control or mA/KV adjustment according to patient size. FINDINGS: No pulmonary emboli are identified. The aorta as imaged shows no acute or suspicious finding. No pericardial thickening or effusion. No infiltrate or mass in the lung parenchyma. No pleural effusion or pleural thickening. No mediastinal or hilar suspicious masses. No chest wall masses or abnormal axillary lymphadenopathy. Limited upper abdomen pseudocyst diffuse fatty infiltration of a partially visualized liver. IMPRESSION: No pulmonary emboli identified. No acute or emergent findings.
--- NOTE | 2022-06-02 16:27 | P.HP ---
Certification for Inpatient Patient admitted to: Observation With expected LOS: <2 Midnights Practitioner: I am a practitioner with admitting privileges, knowledge of patient current condition, hospital course, and medical plan of care. Services: Services provided to patient in accordance with Admission requirements found in Title 42 Section 412.3 of the Code of Federal Regulations Patient History Date of Service: 06/02/22 Reason for admission: Chest tightness and wheezing History of Present Illness: 47-year-old man with a history of breast cancer status post bilateral mastectomy and radiation therapy currently on tamoxifen presented to the emergency department with a complaint of shortness of breath, intermittent chest tightness and wheezing. Patient stated she developed flulike symptoms about 10 days ago, tested positive for flu 1 week ago but got better until the last couple of days she started experiencing intermittent chest tightness, wheezing and shortness of breath. She denies any fever or chest pain. CTA thorax unremarkable, EKG demonstrates sinus rhythm with nonspecific ST-T change, initial troponin negative, COVID-19 screen is negative. No sepsis. Patient was given bronchodilator treatment in the ED with some improvement. She is hospitalized for further management. Allergies hydrocodone Allergy (Verified 08/20/20 09:41) Rash Home Medications: Multivitamin [Multivitamins] 1 each PO DAILY 03/09/20 Ascorbic Acid [Vitamin C] 500 mg PO DAILY 08/20/20 Gabapentin 300 mg PO TID 08/20/20 Tramadol HCl [Ultram] 50 mg PO QID PRN 08/20/20 Cyclobenzaprine [Flexeril] 10 mg PO Q8H PRN #30 tab 08/26/20 - Past Medical/Surgical History -: History of breast cancer -: Bilateral mastectomy -: Hysterectomy - Family History Mother -: GI disease Father -: Cancer - Social History Smoking Status: Never smoker Alcohol use: Yes Place of Residence: Home Review of Systems Other: Except as documented, all other systems reviewed and negative. Physical Examination - Physical Exam General: Alert, In no apparent distress, Oriented x3 HEENT: Atraumatic, PERRLA, Mucous membr. moist/pink, EOMI, Sclerae nonicteric Neck: Supple, JVD not distended, No Thyromegaly Respiratory: Diminished, Expiratory wheezes, Inspiratory wheezes Cardiovascular: No edema, Regular rate/rhythm, Normal S1 S2 Capillary refill: <2 Seconds Gastrointestinal: Soft and benign, Non-distended, No tenderness Musculoskeletal: No swelling, No tenderness Integumentary: No rashes, No erythema, No cyanosis Neurological: Normal speech, Normal strength at 5/5 x4 extr, Cranial nerves 3-12 intact Lymphatics: No axilla or inguinal lymphadenopathy - Studies Laboratory Data (last 24 hrs) 06/02/22 11:15: PT 10.8, INR 0.98 06/02/22 11:15: WBC 6.9, Hgb 13.0, Hct 38.0, Plt Count 238 06/02/22 11:15: Sodium 141, Potassium 3.8, BUN 10, Creatinine 0.53 L, Glucose 93, Magnesium 1.9, Total Bilirubin 0.3, AST 37, ALT 52, Alkaline Phosphatase 68 Microbiology Data (last 24 hrs): 06/02/22 11:15 Nasopharnyx Influenza Type A Antigen Screen - Final 06/02/22 11:15 Nasopharnyx Influenza Type B Antigen Screen - Final Assessment and Plan - Problems (Diagnosis) (1) Acute bronchitis Current Visit: Yes Status: Acute (2) Chest pain Current Visit: Yes Status: Acute (3) Influenza A H1N1 infection Current Visit: Yes Status: Acute - Plan Patient denies any history of asthma. She could be experiencing acute bronchitis secondary to influenza. Placed under observation. Imaging shows no infiltrate Schedule bronchodilators, IV steroid. Antibiotic coverage with Levaquin. IV vancomycin for staph coverage. Trend troponin. Supportive measures-IV fluid. - Advance Directives Does patient have a Living Will: No Does patient have a Durable POA for Healthcare: No
[2022-06-02] MEDS ORDERED: ALBUTEROL 2.5 MG/3 ML NEB SOL NEB ONE (21:11)
[2022-06-02] MEDS ORDERED: ALBUTEROL 2.5 MG/3 ML NEB SOL ONE (21:34)
--- NOTE | 2022-06-02 22:17 | P.DS ---
Admission Date: 06/02/22 Discharge Date: 06/02/22 Primary Care Provider: Parveen Disposition: AMA-LEFT AGAINST MEDICAL ADVIC Discharge Condition: FAIR Reason for Admission: Chest tightness and wheezing - Problems (1) Influenza B Status: Acute (2) Acute bronchitis Status: Acute Qualifiers: Bronchitis organism: other organism Qualified Code(s): J20.8 - Acute bronchitis due to other specified organisms (3) Chest pain Status: Acute Qualifiers: Chest pain type: pleurodynia Qualified Code(s): R07.81 - Pleurodynia Brief History of Present Illness: 47-year-old female with a history of breast cancer status post bilateral mastectomy and radiation therapy currently on tamoxifen presented to the emergency department with a complaint of shortness of breath, intermittent chest tightness and wheezing. Patient stated she developed flulike symptoms about 10 days ago, tested positive for flu B 1 week ago but got better until the last couple of days she started experiencing intermittent chest tightness, wheezing and shortness of breath. She denies any fever or chest pain. CTA thorax unremarkable, EKG demonstrates sinus rhythm with nonspecific ST-T change, initial troponin negative, COVID-19 screen is negative. No sepsis. Patient was given bronchodilator treatment in the ED with some improvement. Hospital Course: Patient was admitted as an ER hold and shortly after she decided that she did not want to stay. She reports that she was feeling much better after IV steroids and breathing treatments. She states that she would rather go home, sleep in her bed, and follow up with her PCP tomorrow. I reemphasized that she was being kept for observation as she was experiencing chest pain but she was okay with signing out AMA. General: Alert, In no apparent distress HEENT: Atraumatic, PERRLA, EOMI Neck: Supple, JVD not distended Respiratory: Clear to auscultation bilaterally, Normal air movement Cardiovascular: Regular rate/rhythm, Normal S1 S2 Gastrointestinal: Normal bowel sounds, No tenderness Musculoskeletal: No tenderness Integumentary: No rashes Neurological: Normal gait, Normal speech, Normal affect Laboratory Data at Discharge: WBC 6.9 K/uL (4.3-10.9) 06/02/22 11:15 Hgb 13.0 g/dL (12.0-15.0) 06/02/22 11:15 Hct 38.0 % (36.0-45.0) 06/02/22 11:15 Plt Count 238 K/uL (152-406) 06/02/22 11:15 PT 10.8 SECONDS (9.5-12.5) 06/02/22 11:15 INR 0.98 06/02/22 11:15 Sodium 141 mmol/L (136-145) 06/02/22 11:15 Potassium 3.8 mmol/L (3.5-5.1) 06/02/22 11:15 BUN 10 mg/dL (7-18) 06/02/22 11:15 Creatinine 0.53 mg/dL (0.55-1.3) L 06/02/22 11:15 Glucose 93 mg/dL (74-106) 06/02/22 11:15 Magnesium 1.9 mg/dL (1.8-2.4) 06/02/22 11:15 Total Bilirubin 0.3 mg/dL (0.2-1.0) 06/02/22 11:15 AST 37 U/L (15-37) 06/02/22 11:15 ALT 52 U/L (12-78) 06/02/22 11:15 Alkaline Phosphatase 68 U/L (45-117) 06/02/22 11:15 Home Medications: Multivitamin [Multivitamins] 1 each PO DAILY 03/09/20 Ascorbic Acid [Vitamin C] 500 mg PO DAILY 08/20/20 Gabapentin 300 mg PO TID 08/20/20 Tramadol HCl [Ultram] 50 mg PO QID PRN 08/20/20 Cyclobenzaprine [Flexeril] 10 mg PO Q8H PRN #30 tab 08/26/20 Diet: Regular Activity: Ad bk Followup: Nasir Saini DO [Primary Care Provider] - Time spent managing pt's care (in minutes): 30
[2022-06-03 01:55] VITALS: TEMP 98.5
[2022-06-03 02:20] VITALS: BP 146/93; O2SAT 99
--- NOTE | 2022-06-03 15:23 | EKG ---
Test Date: 2022-06-02 Test Time: 11:05:08 [employer]visor [employer]: [employer] MEASUREMENT RESULTS: Intervals: Rate: 82 [place]: 146 QRSD: 86 QT: 436 QTc: 509 [place]: P: 42 [place]: 146 QRS: 34 T: 30 INTERPRETIVE STATEMENTS: Normal sinus rhythm Nonspecific T wave abnormality Prolonged QT Abnormal ECG Compared to ECG 12/13/2021 18:44:18 T-wave abnormality now present Prolonged QT interval now present Electronically Signed On 06-03-22 15:20:08 CDT by Jax Shirley
== END 2022-06-02 22:32 | disposition left against medical advice (07) ==
LOC: ER 10:52 → ERHOLD 16:11
PROVIDERS: ADMIT Internal Medicine; ATTEND Internal Medicine
DX: J20.9 Acute bronchitis, unspecified (principal); J10.1 Influenza due to other identified influenza virus with other respiratory manifestations; Z53.29 Procedure and treatment not carried out because of patient's decision for other reasons; R07.81 Pleurodynia; Z20.822 Contact with and (suspected) exposure to COVID-19; Z79.810 Long term (current) use of selective estrogen receptor modulators (SERMs); Z88.3 Allergy status to other anti-infective agents; Z88.5 Allergy status to narcotic agent; Z85.3 Personal history of malignant neoplasm of breast; Z90.13 Acquired absence of bilateral breasts and nipples; Z90.710 Acquired absence of both cervix and uterus; Z80.9 Family history of malignant neoplasm, unspecified; Z83.79 Family history of other diseases of the digestive system
CPT/HCPCS: 96365; 96361; 93005; 87040; 85025; 80048; 36415; 83735; 85610; 85379; 80076; 84443; 81003; 84484; 83880; 80307; 87804 ×2; 71275; 71045; 94640; 96375; 96372; 99285; 87811; Q9967; J1650; J7030; J2930; J3490; G0378 ×2

== ENCOUNTER 2023-01-18 17:01 | Emergency (ER) | payer OTHER ==
--- OUTSIDE RECORDS SUMMARY | 2023-01-18 17:09 | XMS REPORT | Continuity of Care Document ---
:1975 Author Organization [facility] t Address [address] [place] [address] [place] [id number] Care Team Providers Name Role Phone Nasir Saini Primary Care Physician Nasir Saini Attending Clinician Unavailable RADHA BILLINGS Attending Clinician Unavailable YSABEL GARCIA Attending Clinician Unavailable INES LOCKETT Attending Clinician Unavailable INES LOCKETT Attending Clinician Unavailable Radha Roberts Attending Clinician [phone] Doctor Unassigned, [place] Attending Clinician Unavailable JANICE GODOY Attending Clinician Unavailable Estela Eckert MD Attending Clinician Elvie Zheng MD Attending Clinician ELVIE ZHENG Attending Clinician Unavailable NAA ALDANA Attending Clinician Unavailable Lindsey Kaufman Attending Clinician Katya PHDNaa Attending Clinician Ysabel Garcia MD Attending Clinician Cheryl Palma MD Attending Clinician Janice Godoy MD Attending Clinician Pob, [facility] Attending Clinician Unavailable TEJ LEGGETT Attending Clinician Unavailable ELVIE ZHENG Admitting Clinician Unavailable Payers Payer Name Policy Type Policy Number Effective Date Expiration Date Guru arreola [facility] CHARLINE BRICEÑO [id number] 2021 PLUS 00:00:00 [place] [id number] 2020 [facility] 00:00:00 [facility] Community Plan [facility] Problems Condition Condition Condition Status Onset Resolution Last Treating Co mments Source Name Details Category Date Date Treatment Clinician Date [id number] Vitamin D Problem Comm on deficiency Spirit disease - CHI [facility] Cannabis Cannabis Problem Commo n abuse use Spirit disorder, - [facility] [id number] Pap smear Problem Com mon of cervix Spirit shows high - CHI risk HPV [facility] [id number] Morbid Problem Commo n 9104 (severe) Spirit obesity - CHI due to [facility] [id number] Body mass Problem Com mon index Spirit [BMI] - CHI 35.0-35.9, [facility] 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 [facility] Obesity Body mass Problem Commo n index Spirit (BMI) of - CHI 30[address] [place] [address] 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 - CHI drug [facility] Pain due Cancer Problem Common to related Spirit neoplastic pain - CHI disease [facility] Malignant Malignant Problem Com mon neoplasm neoplasm Spirit of of - CHI upper-oute upper-oute St r quadrant r quadrant Susan kes of female of right Medic al breast female Center breast Anemia Anemia due Problem Commo n caused by to Spirit chemothera antineopla - CHI py stic [facility] [id number] 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 [facility] Medical without Center prior episode [id number] Tobacco Problem Commo n use Spirit disorder - CHI [facility] [id number] GERD Problem Common without Spirit esophagiti - CHI s [facility] [id number] Mixed Problem Common hyperlipid Spirit emia - CHI [facility] [id number] Periodic Problem Comm on heart Spirit flutter - CHI [facility] [id number] Nonalcohol Problem Co mmon ic fatty Spirit liver - CHI disease [facility] No known No known Disease Unive rs active active ity of problems problems [facility] Allergies, Adverse Reactions, Alerts Allergy Allergy Status Severity Reaction(s) Onset Inactive Treating Comm ents Source Name Type Date Date Clinician HYDROCOD DRUG Active ITCHING Univers ONE INGREDI 11-16 ity of 00:00: [facility] METRONID DRUG Active N/V Univers AZOLE INGREDI 11-16 ity of 00:00: [facility] [place] Metronid Propensi Active Nausea Univer s azole ty to and/or 11-16 ity of adverse Vomiting 00:00: [place] reaction 00 [facility] Hydrocod Propensi Active Itching Unive rs one ty to 11-16 ity of adverse 00:00: [place] reaction 00 [facility] codeine codeine Active Rash,itchy Comm on [facility] NO KNOWN Drug Active Univers ALLERGIE Class ity of S [facility] Social History Social Habit Start Date Stop Date Quantity Comments Source History of Current Smoker Common Spi rit - Tobacco Use [facility] Sex Assigned At Common Sp kacy - [facility] Exposure to 2022-11-06 2022-11-16 Not sure [facility] SARS-CoV-2 00:00:00 09:09:00 [facility] (event) Branch Alcohol intake 2022-11-16 2022-11-16 Ex-drinker [facility] 00:00:00 00:00:00 (finding) [facility] Tobacco use and 2021-08-23 2021-08-23 Smokeless tobacco Un iversity of exposure 00:00:00 00:00:00 non-user [facility] Smoking Status Start Date Stop Date Source Current Smoker 2022-09-09 00:00:00 Common Spiri t - [facility] Never smoked tobacco [facility] Medications Ordered Filled Start Stop Current Ordering Indication Dosage Frequency Signature Comments Components Source Medication Medication Date Date Medication? Clinician (SIG) Name Name tamoxifen 2021-11 Yes 20mg Take 20 mg Un [place] 20 mg 0-18 by mouth ity of tablet 00:00: in the [place] 00 morning. Medical Branch tamoxifen 2021-11 Yes 20mg Take 20 mg Un skyler 20 mg 0-18 by mouth ity of tablet 00:00: in the morning. Medical Branch Azithromyci Azithromyci 2021-0 2021- No QD Azithromyc n 250 MG n 250 MG 06-03 in 250 MG 00:00: 00:00 00 :00 Azithromyci Azithromyci 2021-0 2- No QD Azithromyc n 250 MG n 250 MG 06-03 in 250 MG 00:00: 00:00 00 :00 Azithromyci Azithromyci 0 2021- No QD Azithromyc n 250 MG n 250 MG 06-03 in 250 MG 00:00: 00:00 00 :00 Benzonatate Benzonatate 2021-2021- No 1{capsu Benzonatat 200 MG 200 MG 05-31 le_as_n e 200 MG 00:00: 00:00 eeded} 00 :00 Benzonatate Benzonatate 2021-0 2021- No 1{capsu Benzonatat 200 MG 200 MG 05-31 le_as_n e 200 MG 00:00: 00:00 eeded} 00 :00 Benzonatate Benzonatate 2021-0 2021- No 1{capsu Benzonatat 200 MG 200 MG 05-31 le_as_n e 200 MG 00:00: 00:00 eeded} 00 :00 Benzonatate Benzonatate 2021-0 2021- No 1{capsu Benzonatat 200 MG 200 MG 05-31 le_as_n e 200 MG 00:00: 00:00 eeded} 00 :00 methylPREDN methylPREDN 2021-0 2021- No QD methylPRED ISolone 4 ISolone 4 05-24 07 NISolone 4 MG MG 00:00: 00:00 MG 00 :00 fluconazole 2021-0 Yes [id number] 200mg Take 1 Univers 200 mg 5-17 tablet by ity of tablet 00:00: mouth daily. Medical Take when Branch flaring fluconazole 2021-0 Yes [id number] 200mg Take 1 Univers 200 mg 5-17 tablet by ity of tablet 00:00: mouth daily. Medical Take when Branch flaring fluconazole 2021-0 Yes [id number] 200mg Take 1 Univers 200 mg 5-17 tablet by ity of tablet 00:00: mouth [place] 00 daily. Medical Take when Branch flaring fluconazole 2021-0 Yes [id number] 200mg Take 1 Univers 200 mg 5-17 tablet by ity of tablet 00:00: mouth [place] 00 daily. Medical Take when Branch flaring fluconazole 2021-0 Yes [id number] 200mg Take 1 Univers 200 mg 5-17 tablet by ity of tablet 00:00: mouth [place] 00 daily. Medical Take when Branch flaring clotrimazol 2021-0 Yes [id number] Apply to Univers e 1 % 2-03 area(s) 2 ity of topical 00:00: (two) [place] cream 00 times Medical daily. Branch clindamycin 2021-0 Yes [id number] Apply to Univers 1 % gel 2-03 affected ity of 00:00: area(s) 2 [place] 00 (two) Medical times Branch daily. clotrimazol 2021-0 Yes [id number] Apply to Univers e 1 % 2-03 area(s) 2 ity of topical 00:00: (two) [place] cream 00 times Medical daily. Branch clindamycin 2021-0 Yes [id number] Apply to Univers 1 % gel 2-03 affected ity of 00:00: area(s) 2 [place] 00 (two) Medical times Branch daily. clotrimazol 2021-0 Yes [id number] Apply to Univers e 1 % 2-03 area(s) 2 ity of topical 00:00: (two) [place] cream 00 times Medical daily. Branch clindamycin 2021-0 Yes [id number] Apply to Univers 1 % gel 2-03 affected ity of 00:00: area(s) 2 [place] 00 (two) Medical times Branch daily. clotrimazol 2-0 Yes [id number] Apply to Univers e 1 % 2-03 area(s) 2 ity of topical 00:00: (two) [place] cream 00 times Medical daily. Branch clindamycin 2021-0 Yes [id number] Apply to Univers 1 % gel 2-03 affected ity of 00:00: area(s) 2 [place] 00 (two) Medical times Branch daily. clotrimazol 2-0 Yes [id number] Apply to Univers e 1 % 2-03 area(s) 2 ity of topical 00:00: (two) [place] cream 00 times Medical daily. Branch fluconazole 2021-0 Yes [id number] 200mg Take 1 Univers 200 mg 2-03 tablet by ity of tablet 00:00: mouth [place] 00 daily. Medical Take when Branch flaring clindamycin 2021-0 Yes [id number] Apply to Univers 1 % gel 2-03 affected ity of 00:00: area(s) 2 [place] 00 (two) Medical times Branch daily. clotrimazol 2021-0 Yes [id number] Apply to Univers e 1 % 2-03 area(s) 2 ity of topical 00:00: (two) [place] cream 00 times Medical daily. Branch fluconazole 2021-0 Yes [id number] 200mg Take 1 Univers 200 mg 2-03 tablet by ity of tablet 00:00: mouth [place] 00 daily. Medical Take when Branch flaring clindamycin 2021-0 Yes [id number] Apply to Univers 1 % gel 2-03 affected ity of 00:00: area(s) 2 [place] 00 (two) Medical times Branch daily. clotrimazol 2021-0 Yes [id number] Apply to Univers e 1 % 2-03 area(s) 2 ity of topical 00:00: (two) [place] cream 00 times Medical daily. Branch fluconazole 2021-0 Yes [id number] 200mg Take 1 Univers 200 mg 2-03 tablet by ity of tablet 00:00: mouth [place] 00 daily. Medical Take when Branch flaring clindamycin 2021-0 Yes [id number] Apply to Univers 1 % gel 2-03 affected ity of 00:00: area(s) 2 [place] 00 (two) Medical times Branch daily. clotrimazol 2021-0 Yes [id number] Apply to Univers e 1 % 2-03 area(s) 2 ity of topical 00:00: (two) [place] cream 00 times Medical daily. Branch fluconazole 2021-0 Yes [id number] 200mg Take 1 Univers 200 mg 2-03 tablet by ity of tablet 00:00: mouth [place] 00 daily. Medical Take when Branch flaring clindamycin 2021-0 Yes [id number] Apply to Univers 1 % gel 2-03 affected ity of 00:00: area(s) 2 [place] 00 (two) Medical times Branch daily. clotrimazol Yes [id number] Apply to Univers e 1 % 2-03 area(s) 2 ity of topical 00:00: (two) [place] cream 00 times Medical daily. Branch clindamycin Yes [id number] Apply to Univers 1 % gel 03 affected ity of 00:00: area(s) 2 [place] 00 (two) Medical times Branch daily. fluconazole 2021- No [id number] 200mg Take 1 Univers 200 mg 12-09 05-17 tablet by ity of tablet 00:00: 00:00 mouth [place] 00 :00 daily. Medical Take when Branch flaring No known 2020-11 No Univers medications 0-18 ity of 14:57: [address] No known 2020-11 No Univers medications 0-18 ity of 14:57: [address] No known 2020-11 No Univers medications 0-18 ity of 14:57: [address] No known 2020- No Univers medications 0-18 ity of 14:57: [address] No known 2020- No Univers medications 0-18 ity of 14:57: [address] No known 2020-1 No Univers medications 0-18 ity of 14:57: [address] No known 2020-1 No Univers medications 0-18 ity of 14:57: [address] No known 2020- No Univers medications 0-18 ity of 14:57: [address] No known 2020- No Univers medications 0-18 ity of 14:57: [address] No known 2020- No Univers medications 0-18 ity of 14:57: [address] No known 2020-1 No Univers medications 0-18 ity of 14:57: [address] No known 2020-1 No Univers medications 0-18 ity of 14:57: [address] No known 2020-1 No Univers medications 0-18 ity of 14:57: [address] Amitriptyli Amitriptyli No QD ne HCl 50 ne HCl 50 1-21 MG MG 00:00: 00 Amitriptyli Amitriptyli 0 No QD ne HCl 50 ne HCl 50 1-21 MG MG 00:00: 00 Amitriptyli Amitriptyli No QD Amitriptyl ne HCl 50 ne HCl 50 1-21 ine HCl 50 MG MG 00:00: MG 00 Amitriptyli Amitriptyli No QD Amitriptyl ne HCl 50 ne HCl 50 1-21 ine HCl 50 MG MG 00:00: MG 00 Amitriptyli Amitriptyli No QD Amitriptyl ne HCl 50 ne HCl 50 1-21 ine HCl 50 MG MG 00:00: MG 00 Amitriptyli Amitriptyli No QD Amitriptyl ne HCl 50 ne HCl 50 1-21 ine HCl 50 MG MG 00:00: MG 00 Amitriptyli Amitriptyli No QD Amitriptyl ne HCl 50 ne HCl 50 1-21 ine HCl 50 MG MG 00:00: MG 00 Amitriptyli Amitriptyli No QD Amitriptyl ne HCl 50 ne HCl 50 1-21 ine HCl 50 MG MG 00:00: MG 00 Amitriptyli Amitriptyli No QD Amitriptyl ne HCl 50 ne HCl 50 1-21 ine HCl 50 MG MG 00:00: MG 00 Amitriptyli Amitriptyli No QD Amitriptyl ne HCl 50 ne HCl 50 1-21 ine HCl 50 MG MG 00:00: MG 00 Amitriptyli Amitriptyli No QD Amitriptyl ne HCl 50 ne HCl 50 1-21 ine HCl 50 MG MG 00:00: MG 00 Amitriptyli Amitriptyli No QD Amitriptyl ne HCl 50 ne HCl 50 1-21 ine HCl 50 MG MG 00:00: MG 00 Amitriptyli Amitriptyli No QD Amitriptyl ne HCl 50 ne HCl 50 1-21 ine HCl 50 MG MG 00:00: MG 00 Amitriptyli Amitriptyli No QD Amitriptyl ne HCl 50 ne HCl 50 1-21 ine HCl 50 MG MG 00:00: MG 00 Amitriptyli Amitriptyli No QD Amitriptyl ne HCl 50 ne HCl 50 1-21 ine HCl 50 MG MG 00:00: MG 00 Dexamethaso Dexamethaso No 1{table QD ne 4 MG ne 4 MG t} Vitamin B6 Vitamin B6 No Zofran 4 MG Zofran 4 MG No 1{table QD t} Multivitami Multivitami No n n Acyclovir Acyclovir No 1{table BID 800 MG 800 MG t} Magic Magic No Mouthwash Mouthwash DULoxetine DULoxetine No 1{capsu QD HCl 30 MG HCl 30 MG le} Vitamin B12 Vitamin B12 No Dexamethaso Dexamethaso No 1{table QD ne 4 MG ne 4 MG t} Vitamin B6 Vitamin B6 No Zofran 4 MG Zofran 4 MG No 1{table QD t} Multivitami Multivitami No n n Acyclovir Acyclovir No 1{table BID 800 MG 800 MG t} Magic Magic No Mouthwash Mouthwash DULoxetine DULoxetine No 1{capsu QD HCl 30 MG HCl 30 MG le} Vitamin B12 Vitamin B12 No Multivitami Multivitami No Multivitam n n in Dexamethaso Dexamethaso No 1{table QD Dexamethas ne 4 MG ne 4 MG t} one 4 MG Magic Magic No Magic Mouthwash Mouthwash Mouthwash Vitamin B12 Vitamin B12 No Vitamin B12 DULoxetine DULoxetine No 1{capsu QD DULoxetine HCl 30 MG HCl 30 MG le} HCl 30 MG Zofran 4 MG Zofran 4 MG No 1{table QD Zofran 4 t} MG Vitamin B6 Vitamin B6 No Vitamin B6 Acyclovir Acyclovir No 1{table BID Acyclovir 800 MG 800 MG t} 800 MG Multivitami Multivitami No Multivitam n n in Dexamethaso Dexamethaso No 1{table QD Dexamethas ne 4 MG ne 4 MG t} one 4 MG Magic Magic No Magic Mouthwash Mouthwash Mouthwash Vitamin B12 Vitamin B12 No Vitamin B12 DULoxetine DULoxetine No 1{capsu QD DULoxetine HCl 30 MG HCl 30 MG le} HCl 30 MG Zofran 4 MG Zofran 4 MG No 1{table QD Zofran 4 t} MG Vitamin B6 Vitamin B6 No Vitamin B6 Acyclovir Acyclovir No 1{table BID Acyclovir 800 MG 800 MG t} 800 MG Multivitami Multivitami No Multivitam n n in Magic Magic No Magic Mouthwash Mouthwash Mouthwash Acyclovir Acyclovir No 1{table BID Acyclovir 800 MG 800 MG t} 800 MG Vitamin B12 Vitamin B12 No Vitamin B12 Zofran 4 MG Zofran 4 MG No 1{table QD Zofran 4 t} MG DULoxetine DULoxetine No 1{capsu QD DULoxetine HCl 30 MG HCl 30 MG le} HCl 30 MG Vitamin B6 Vitamin B6 No Vitamin B6 Dexamethaso Dexamethaso No 1{table QD Dexamethas ne 4 MG ne 4 MG t} one 4 MG Multivitami Multivitami No Multivitam n n in Magic Magic No Magic Mouthwash Mouthwash Mouthwash Dexamethaso Dexamethaso No 1{table QD Dexamethas ne 4 MG ne 4 MG t} one 4 MG Zofran 4 MG Zofran 4 MG No 1{table QD Zofran 4 t} MG Acyclovir Acyclovir No 1{table BID Acyclovir 800 MG 800 MG t} 800 MG Vitamin B6 Vitamin B6 No Vitamin B6 DULoxetine DULoxetine No 1{capsu QD DULoxetine HCl 30 MG HCl 30 MG le} HCl 30 MG Vitamin B12 Vitamin B12 No Vitamin B12 Multivitami Multivitami No Multivitam n n in Acyclovir Acyclovir No 1{table BID Acyclovir 800 MG 800 MG t} 800 MG Dexamethaso Dexamethaso No 1{table QD Dexamethas ne 4 MG ne 4 MG t} one 4 MG Magic Magic No Magic Mouthwash Mouthwash Mouthwash Zofran 4 MG Zofran 4 MG No 1{table QD Zofran 4 t} MG Vitamin B12 Vitamin B12 No Vitamin B12 Vitamin B6 Vitamin B6 No Vitamin B6 DULoxetine DULoxetine No 1{capsu QD DULoxetine HCl 30 MG HCl 30 MG le} HCl 30 MG Multivitami Multivitami No Multivitam n n in Acyclovir Acyclovir No 1{table BID Acyclovir 800 MG 800 MG t} 800 MG Dexamethaso Dexamethaso No 1{table QD Dexamethas ne 4 MG ne 4 MG t} one 4 MG Magic Magic No Magic Mouthwash Mouthwash Mouthwash Zofran 4 MG Zofran 4 MG No 1{table QD Zofran 4 t} MG Vitamin B12 Vitamin B12 No Vitamin B12 Vitamin B6 Vitamin B6 No Vitamin B6 DULoxetine DULoxetine No 1{capsu QD DULoxetine HCl 30 MG HCl 30 MG le} HCl 30 MG Multivitami Multivitami No Multivitam n n in Acyclovir Acyclovir No 1{table BID Acyclovir 800 MG 800 MG t} 800 MG Dexamethaso Dexamethaso No 1{table QD Dexamethas ne 4 MG ne 4 MG t} one 4 MG Magic Magic No Magic Mouthwash Mouthwash Mouthwash Zofran 4 MG Zofran 4 MG No 1{table QD Zofran 4 t} MG Vitamin B12 Vitamin B12 No Vitamin B12 Vitamin B6 Vitamin B6 No Vitamin B6 DULoxetine DULoxetine No 1{capsu QD DULoxetine HCl 30 MG HCl 30 MG le} HCl 30 MG Dexamethaso Dexamethaso No 1{table QD Dexamethas ne 4 MG ne 4 MG t} one 4 MG Magic Magic No Magic Mouthwash Mouthwash Mouthwash Vitamin B12 Vitamin B12 No Vitamin B12 Acyclovir Acyclovir No 1{table BID Acyclovir 800 MG 800 MG t} 800 MG Multivitami Multivitami No Multivitam n n in DULoxetine DULoxetine No 1{capsu QD DULoxetine HCl 30 MG HCl 30 MG le} HCl 30 MG Vitamin B6 Vitamin B6 No Vitamin B6 Zofran 4 MG Zofran 4 MG No 1{table QD Zofran 4 t} MG Dexamethaso Dexamethaso No 1{table QD Dexamethas ne 4 MG ne 4 MG t} one 4 MG Magic Magic No Magic Mouthwash Mouthwash Mouthwash Vitamin B12 Vitamin B12 No Vitamin B12 Acyclovir Acyclovir No 1{table BID Acyclovir 800 MG 800 MG t} 800 MG Multivitami Multivitami No Multivitam n n in DULoxetine DULoxetine No 1{capsu QD DULoxetine HCl 30 MG HCl 30 MG le} HCl 30 MG Vitamin B6 Vitamin B6 No Vitamin B6 Zofran 4 MG Zofran 4 MG No 1{table QD Zofran 4 t} MG Dexamethaso Dexamethaso No 1{table QD Dexamethas ne 4 MG ne 4 MG t} one 4 MG Magic Magic No Magic Mouthwash Mouthwash Mouthwash Vitamin B12 Vitamin B12 No Vitamin B12 Acyclovir Acyclovir No 1{table BID Acyclovir 800 MG 800 MG t} 800 MG Multivitami Multivitami No Multivitam n n in DULoxetine DULoxetine No 1{capsu QD DULoxetine HCl 30 MG HCl 30 MG le} HCl 30 MG Vitamin B6 Vitamin B6 No Vitamin B6 Zofran 4 MG Zofran 4 MG No 1{table QD Zofran 4 t} MG Acyclovir Acyclovir No 1{table BID Acyclovir 800 MG 800 MG t} 800 MG Tamoxifen Tamoxifen No 1{table QD Tamoxifen Citrate 20 Citrate 20 t} Citrate 20 MG MG MG Multivitami Multivitami No Multivitam n n in Magic Magic No Magic Mouthwash Mouthwash Mouthwash Vitamin B12 Vitamin B12 No Vitamin B12 Dexamethaso Dexamethaso No 1{table QD Dexamethas ne 4 MG ne 4 MG t} one 4 MG Vitamin B6 Vitamin B6 No Vitamin B6 Zofran 4 MG Zofran 4 MG No 1{table QD Zofran 4 t} MG Zofran 4 MG Zofran 4 MG No 1{table QD Zofran 4 t} MG Magic Magic No Magic Mouthwash Mouthwash Mouthwash Vitamin B6 Vitamin B6 No Vitamin B6 Vitamin B12 Vitamin B12 No Vitamin B12 Multivitami Multivitami No Multivitam n n in Tamoxifen Tamoxifen No 1{table QD Tamoxifen Citrate 20 Citrate 20 t} Citrate 20 MG MG MG Acyclovir Acyclovir No 1{table BID Acyclovir 800 MG 800 MG t} 800 MG Dexamethaso Dexamethaso No 1{table QD Dexamethas ne 4 MG ne 4 MG t} one 4 MG Acyclovir Acyclovir No 1{table BID Acyclovir 800 MG 800 MG t} 800 MG Tamoxifen Tamoxifen No 1{table QD Tamoxifen Citrate 20 Citrate 20 t} Citrate 20 MG MG MG Multivitami Multivitami No Multivitam n n in Magic Magic No Magic Mouthwash Mouthwash Mouthwash Vitamin B12 Vitamin B12 No Vitamin B12 Dexamethaso Dexamethaso No 1{table QD Dexamethas ne 4 MG ne 4 MG t} one 4 MG Vitamin B6 Vitamin B6 No Vitamin B6 Zofran 4 MG Zofran 4 MG No 1{table QD Zofran 4 t} MG Vital Signs Vital Name Observation Time Observation Value Comments Source Systolic blood 2022-11-16 15:22:00 126 mm[Hg] Univer sity of pressure [facility] Diastolic blood 2022-11-16 15:22:00 85 mm[Hg] Unive rsity of [facility] Heart rate 2022-11-16 15:22:00 75 /min [facility] Body height 2022-11-16 15:22:00 162.6 cm [facility] Body weight 2022-11-16 15:22:00 90.583 kg [facility] BMI 2022-11-16 15:22:00 34.28 kg/m2 [facility] height 2022-09-14 09:40:00 64 [in_i] [facility] weight 2022-09-14 09:40:00 197.9 [lb_av] [facility] temperature 2022-09-14 09:40:00 97.1 [degF] [facility] bmi 2022-09-14 09:40:00 33.97 kg/m2 [facility] oximetry 2022-09-14 09:40:00 99 % [facility] respiratory rate 2022-09-14 09:40:00 18 /min Comm on [facility] blood pressure 2022-09-14 09:40:00 123 mm[Hg] [facility] - systolic [facility] blood pressure 2022-09-14 09:40:00 69 mm[Hg] [facility] - diastolic [facility] blood pressure 2022-08-08 09:20:00 73 mm[Hg] [facility] - diastolic [facility] height 2022-08-08 09:20:00 64 [in_i] [facility] weight 2022-08-08 09:20:00 204.3 [lb_av] [facility] temperature 2022-08-08 09:20:00 97.2 [degF] [facility] bmi 2022-08-08 09:20:00 35.06 kg/m2 [facility] oximetry 2022-08-08 09:20:00 99 % [facility] respiratory rate 2022-08-08 09:20:00 18 /min Comm on [facility] blood pressure 2022-08-08 09:20:00 124 mm[Hg] Common [facility] - systolic [facility] height 2022-05-24 11:20:00 64 [in_i] Common [facility] weight 2022-05-24 11:20:00 190 [lb_av] [facility] bmi 2022-05-24 11:20:00 32.61 kg/m2 [facility] height 2022-03-31 08:40:00 64 [in_i] [facility] weight 2022-03-31 08:40:00 204 [lb_av] [facility] temperature 2022-03-31 08:40:00 97.4 [degF] [facility] bmi 2022-03-31 08:40:00 35.01 kg/m2 [facility] blood pressure 2022-03-31 08:40:00 125 mm[Hg] Common [facility] - systolic [facility] blood pressure 2022-03-31 08:40:00 75 mm[Hg] Common [facility] - diastolic [facility] Body height 2022-01-11 21:31:00 162.6 cm [facility] Body weight 2022-01-11 21:31:00 89.631 kg [facility] BMI 2022-01-11 21:31:00 33.92 kg/m2 [facility] Systolic blood 2021-08-23 20:04:00 111 mm[Hg] Univer sity of pressure [facility] Diastolic blood 2021-08-23 20:04:00 71 mm[Hg] Unive rsity of pressure [facility] Heart rate 2021-08-23 20:04:00 75 /min [facility] Respiratory rate 2021-08-23 20:04:00 17 /min Univ ersity of [facility] Body height 2021-08-23 20:04:00 162.6 cm [facility] Body weight 2021-08-23 20:04:00 86.093 kg [facility] BMI 2021-08-23 20:04:00 32.58 kg/m2 [facility] Oxygen saturation in 2021-08-23 20:04:00 97 /min [facility] Arterial blood by [facility] Pulse oximetry Branch Procedures Procedure Date / Time Performing Clinician Source Performed REFERRAL- 2022-09-16 06:01:00 Doctor Unassigned, No Univer [facility] REQUEST/RESPONSE Name Medical Branch EXTERNAL PROVIDER - ADC 2022-07-12 05:01:00 Doctor Unassigned, N o [facility] REFERRAL Name Medical Branch CT TEMPORAL BONES WO 2022-02-16 15:53:00 Bairon Aponte [facility] CONTRAST [facility] EXTERNAL PROVIDER 2021-10-28 06:01:00 Doctor Unassigned, No Univ [facility] RECORDS Name [facility] TRANSTHORACIC ECHO (TTE) 2021-08-26 20:36:00 Janice Godoy [facility] NOTICE OF PRIVACY 2021-08-23 20:48:13 Doctor Unassigned, No Univ [facility] PRACTICES Name [facility] [place] Encounters Start End Encounter Admission Attending Care Care Encounter Source Date/Time Date/Time Type Type Clinicians Facility Department ID 2022-09-12 Outpatient Saini, STLMLC STLC [id number] Common 10:43:01 Nasir [id number] [facility] 2022-06-08 Outpatient Saini, STLMLC STLMLC [id number] Common 13:08:00 Nasir [facility] 2022-02-07 Outpatient Saini, STLMLC STLMLC [id number] Common 09:53:01 Nasir [facility] [facility] 2021-12-28 Outpatient Saini, STLMLC STLC [id number] Common 14:35:01 Nasir [facility] 2021-12-01 Outpatient Saini, STLMLC STLMLC [id number] Common 14:06:24 Nasir 12384 [facility] 2021-12-01 Outpatient Saini, STLMLC STLMLC [id number] Common 13:46:38 Nasir 19545 [facility] 2021-12-01 Outpatient Saini, STLMLC STLMLC [id number] Common 13:45:40 Nasir 56860 [facility] 2021-12-01 Outpatient Saini, STLMLC STLMLC [id number] Common 12:35:58 Nasir 47802 [facility] 2021-12-01 Outpatient Saini, STLMLC STLMLC [id number] Common 12:35:24 Nasir 23215 [facility] 2021-12-01 Outpatient Saini, STLMLC STLMLC [id number] Common 12:34:41 Nasir 21522 [facility] 2021-12-01 Outpatient Saini, STLMLC STLMLC [id number] Common 12:23:41 Nasir 54194 [facility] 2021-12-01 Outpatient Saini, STLMLC STLMLC [id number] Common 12:23:02 Nasir 95368 [facility] 2021-12-01 Outpatient Saini, STLMLC STLMLC [id number] Common 12:20:24 Nasir 66009 [facility] 2021-12-01 Outpatient Saini, STLMLC STLMLC [id number] Common 12:15:43 Nasir 19801 [facility] 2023-05-17 2023-05-17 Outpatient Jeniffer BILLINGS [facility] [id number] Univers 13:00:00 13:00:00 RADHA reyes [facility] 2023-01-10 2023-01-10 Outpatient INES PACKER [facility] B [id number] Univers 13:00:00 13:00:00 INES LOCKETT [facility] 2023-01-02 2023-01-02 Outpatient R INES LOCKETT [facility] B [id number] Univers 09:30:00 09:30:00 INES LOCKETT eric [facility] 2022-11-16 2022-11-16 Outpatient R JARETT [facility] [id number] Univers 09:00:00 11:43:46 RADHA ity [facility] 2022-11-16 2022-11-16 Office NATI Billings 1.2.840.114 [id number] Univers 09:00:00 11:43:46 Visit Radha [facility] 350.1.13.10 i ty of [facility] 4.2.7.2.686 [place]h as [phone] [place] [id number] [place] 2022-09-16 2022-09-16 Orders Doctor WAYNE 1.2.840.114 [id number] Univers 00:00:00 00:00:00 Only Unassigned, ABHINAV 350.1.13.10 ity of [place] [facility] 4.2.7.2.686 Mahesh as [phone] [place] [address] 2022-09-14 2022-09-14 [facility] [id number] Co mmon 00:00:00 00:00:00 VISIT Spirit ESTAB PT - CHI LEVEL 4 [facility] 2022-08-08 2022-08-08 Outpatient Jeniffer GODOY [facility] [id number] Univers 14:20:00 14:20:00 JANICE reyes o f [facility] 2022-08-08 2022-08-08 [facility] STLC [id number] Common 00:00:00 00:00:00 EST AGE Spirit 40-64 - CHI [facility] 2022-07-20 2022-07-20 (TEL) STLC STLC [id number] Co mmon 00:00:00 00:00:00 Spirit - CHI [facility] 2022-07-12 2022-07-12 Orders Doctor WAYNE 1.2.840.114 [id number] Univers 00:00:00 00:00:00 Only Unassigned, ABHINAV 350.1.13.10 ity of [place] [facility] 4.2.7.2.686 [place]h as [phone] [place] [address] [address] 2022-07-08 2022-07-08 (TEL) STLMLC STLMLC [id number] Co mmon 00:00:00 00:00:00 [facility] 2022-06-29 2022-06-29 (TEL) STLMLC STLMLC [id number] Co mmon 00:00:00 00:00:00 [facility] 2022-06-17 2022-06-17 Outpatient Jeniffer GODOY [facility] [id number] Univers 09:20:00 09:20:00 MANICARMELLA eric o f [facility] 2022-06-06 2022-06-06 (TEL) STLMLC STLMLC [id number] Co mmon 00:00:00 00:00:00 [facility] 2022-06-02 2022-06-02 (TEL) STLMLC STLMLC [id number] Co mmon 00:00:00 00:00:00 [facility] 2022-05-31 2022-05-31 (TEL) STLMLC STLMLC [id number] Co mmon 00:00:00 00:00:00 [facility] 2022-05-24 2022-05-24 (TEL) STLMLC STLMLC [id number] Co mmon 00:00:00 00:00:00 [facility] 2022-05-24 2022-05-24 OFFICE STLMLC STLMLC [id number] Co mmon 00:00:00 00:00:00 VISIT EST Spir it PT LEVEL 3 - [facility] 2022-05-23 2022-05-23 (TEL) STLMLC STLMLC [id number] Co mmon 00:00:00 00:00:00 [facility] 2022-03-31 2022-03-31 OFFICE STLMLC STLMLC [id number] Co mmon 00:00:00 00:00:00 VISIT Spirit ESTAB PT - CHI LEVEL 4 [facility] 2022-03-22 2022-03-22 NATI Ortega 1.2.840.114 [id number] Univers 00:00:00 00:00:00 [facility] 350.1.13.[address] [facility] 4.2.7.2.686 [facility] [phone] [place] [address] 2022-02-21 2022-02-21 Telephone [facility] 1.2.840.114 [id number] Univers 00:00:00 00:00:00 Elvie MEYERY 350.1.13.10 i ty of [facility] [place] [id number] [place] [address] [place] 2022-02-16 2022-02-16 Outpatient R [facility] [id number] Univers 10:22:05 23:59:00 ELVIE [facility] 2022-02-16 2022-02-16 [facility] 1.2.840.114 [id number] [facility] 10:00:00 23:59:00 Encounter Elvie BANEGAS 350.1.13.10 ity [facility] 4.2.7.2.686 [facility] [id number] [place] [address] 2022-01-20 2022-01-20 Outpatient R [facility] [id number] Univers 00:00:00 00:00:00 ELVIE [facility] 2022-01-12 2022-01-12 Letter [facility] 1.2.840.114 [id number] Univers 00:00:00 00:00:00 (Out) Elvie ALMANZATANY 350.1.13.10 i ty of [address] [phone] [address] 2022-01-11 2022-01-11 [facility] [id number] Univers 16:00:00 16:46:56 [facility] 2022-01-11 2022-01-11 [facility] [id number] Univers 15:15:00 16:46:21 ELVIE [facility] 2022-01-11 2022-01-11 Office MAYDA Zheng 1.2.840.114 [id number] Univers 15:15:00 16:46:21 Visit Elvie Timmons 350.1.13.10 it y of [place] 4.2.7.2.686 [place]h as [phone] [facility] [address] 2022-01-11 2022-01-11 Ancillary Lindsey Acosta [facility] 1. 2.840.114 [id number] Univers 16:00:00 16:45:00 Visit Naa Aldana 350.1.13.10 ity of [place] 4.2.7.2.686 Mahesh as BANK [phone] [facility] [address] 2022-01-11 2022-01-11 Orders Doctor WAYNE 1.2.840.114 [id number] Univers 00:00:00 00:00:00 Only Unassigned, ABHINAV 350.1.13.10 ity of [place] [facility] 4.2.7.2.686 [place] [phone] [place] [address] [address] 2021-12-13 2021-12-13 (TEL) [facility] [id number] Co mmon 00:00:00 00:00:00 [facility] 2021-12-09 2021-12-09 Office MAYDA Garcia 1.2.045.584 [id number] Univers 14:30:00 14:45:00 Visit Ysabel Timmons HEALTH 350.1.13.[address] [facility] 4.2.7.2.[place] [phone] [place] [address] 2021-12-09 2021-12-09 Outpatient R RIGO [facility] [id number] Univers 14:30:00 14:30:00 YSABEL ity of [facility] 2021-12-07 2021-12-07 (TEL) [facility] [id number] Co mmon 00:00:00 00:00:00 [facility] 2021-11-09 2021-11-09 Telephone Cheryl Palma [facility] 1.2.840.114 [id number] Univers 00:00:00 00:00:00 E HEALTH 350.1.13.10 it y [place] - [phone] [facility] [address] 2021-11-03 2021-11-03 Orders Doctor WAYNE 1.2.840.114 [id number] Univers 00:00:00 00:00:00 Only Unassigned, ABHINAV 350.1.13.10 it[place] [facility] 4.2.7.2.686 [place]h as [phone] [place] [address] 2021-11-03 2021-11-03 Telephone [facility] 1.2.840.114 [id number] Univers 00:00:00 00:00:00 E HEALTH 350.1.13.10 it [place] - [phone] [facility] [address] 2021-11-02 2021-11-02 [facility] 1.2.840.114 [id number] Univers 00:00:00 00:00:00 E HEALTH 350.1.13.10 it [place] - [phone] [facility] [address] 2021-10-28 2021-10-28 Orders Doctor WAYNE 1.2.840.114 [id number] Univers 00:00:00 00:00:00 Only Unassigned, ABHINAV 350.1.13.10 ity of [place] [facility] 4.2.7.2.686 [place]h as [phone] [place] [address] 2021-10-21 2021-10-21 [facility] 1.2.840.114 [id number] Univers 00:00:00 00:00:00 E HEALTH 350.1.13.10 it [place] - [phone] [facility] [address] 2021-10-14 2021-10-14 [facility] 1.2.840.114 [id number] Univers 00:00:00 00:00:00 E HEALTH 350.1.13.10 it [place] - [phone] [facility] ical [facility] [address] 2021-09-14 2021-09-14 [facility] [place] 1.2.612.655 [id number] Univers 00:00:00 00:00:00 Qiangjun [place] 350.1.13.10 ity of [place] [phone] Nh dical NAL 059 [employer] 2021-08-26 2021-08-26 [facility] 1.2.840.114 [id number] Univers 15:00:00 23:59:00 Encounter Qiangjun [place] 350.1.13.10 ity of [place].2.[place] [phone] [facility] mode [address] [place] 2021-08-26 2021-08-26 Outpatient R [facility] [id number] Univers 00:00:00 00:00:00 QIANGJUN ity o f [facility] 2021-08-25 2021-08-25 [facility] 1.2.840.114 [id number] Univers 15:59:19 23:59:00 Encounter Qiangjun [place] 350.1.13.10 ity of [place] [phone] Nh dical nal 846 [facility] 2021-08-25 2021-08-25 Outpatient R [facility] [id number] Univers 16:30:00 16:30:00 QIANGJUN ity o f [facility] 2021-08-25 2021-08-25 Outpatient R [facility] [id number] Univers 08:00:00 08:00:00 QIANGJUN ity o f [facility] 2021-08-23 2021-08-23 [facility] 1.2.840.114 [id number] Univers 15:51:57 23:59:00 Encounter Qiangjun [place] 350.1.13.10 ity of [place].2.[place] [phone] [facility] mode 8[address] [place] 2021-08-23 2021-08-23 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, [facility] 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 [place] 1.2.8 40.114 [id number] Univers 15:48:35 16:03:35 Visit Janice Godoy 350.1.13.10 it[place] of [place] [phone] Nh dical nal 353 [facility] 2021-08-23 2021-08-23 Office Jayne, R[place] 1.2.840.114 [id number] Univers 14:42:37 15:29:34 Visit Janice Banegas 350.1.13.10 it[place] of [place].2.[place] [phone] Nh dical nal 059 [facility] 2021-08-23 2021-08-23 Outpatient R JAYNE [facility] [id number] Univers 14:40:00 14:40:00 JANICE ity o f [facility] 2021-08-23 2021-08-23 Orders Doctor WAYNE 1.2.840.114 [id number] Univers 00:00:00 00:00:00 Only Unassigned, ABHINAV 350.1.13.10 it[place] [facility] 4.2.7.2.686 [place]h [place] [phone] [address] 2021-07-08 2021-07-08 Outpatient STLMLC STLMLC [id number] Common 00:00:00 00:00:00 [facility] 2021-07-06 2021-07-06 Outpatient STLMLC STLC [id number] Common 00:00:00 00:00:00 [facility] 2021-01-19 2021-01-19 Outpatient R TEJ LEGGETT [facility] [id number] Univers 09:00:00 09:00:00 ity of [facility] 2021-01-19 2021-01-19 Orders Doctor WAYNE 1.2.840.114 [id number] Univers 00:00:00 00:00:00 Only Unassigned, ABHINAV 350.1.13.10 it[place] of [place] [facility] 4.2.7.2.686 [place] [phone] [address] 2020-12-24 2020-12-24 Outpatient [facility] [id number] Common 00:00:00 00:00:00 [facility] 2020-11-26 2020-11-26 Outpatient [facility] [id number] Common 00:00:00 00:00:00 [facility] 2020-11-11 2020-11-11 Outpatient [facility] [id number] Common 00:00:00 00:00:00 [facility] 2020-10-27 2020-10-27 Outpatient [facility] [id number] Common 00:00:00 00:00:00 [facility] Results Test Description Test Time Test Comments Results Result Comments Source STREP A RAPID 2022-05-24 00:00:00 Test Item Value Reference Range Interpretation Comme nts Result (test code = 43692-4) Negative VAGINAL PATHOGENS DNA [id number] 16:58:57 Test Item Value Reference Range Interpretation Comments ELICEO SPECIES (test NEGATIVE NEGATIVE code = 35613) G. VAGINALIS (test POSITIVE NEGATIVE A code = 28522) T. VAGINALIS (test NEGATIVE NEGATIVE UNLESS O THERWISE code = 49067) INDICATED, ALL TESTING PERFORMED [facility] PATHOLOGY LABOR FOR[facility]LY [facility]. [address] [place] [address] LABORATORY DIRE CTOR: SARAY DAUGHERTY M.D. CLIA NUMBER [id number] [facility] [place] [id number] BREAST ULTRASOUND CORE BIOPSY [id number] 13:16:29- BREAST ULTRASOUND CORE BIOPSY RIGHTULTRASOUND GUIDED BIOPSY RIGHT BREAST WITH MARKING DEVICE INSERTED: 12/31/2019CLINICAL: Ultrasound biopsy, right breast. Comparison is made to exams dated 12/16/2019 ultrasound and 12/16/2019 mammogram - [facility]-. An ultrasound guided biopsy using real-time ultrasound was performed for the 4 cm mass located in the right breast at 9 o'clock, 5 cm from the nipple. The skin was prepped in the usual manner. Local anesthetic was administered to the acces s site. A 14 gauge biopsy needle was placed adjacent to the abnormality under ultrasound guidance. Once the needle was documented to be in the correct location, multiple specimens were obtained using BodBot biopsy device. A clip was inserted into [...] 01/06/2020 17:17:56Imaging Technologist: Radha Moon , [facility]-DIAG MAMM RIGHT CAD [id number] 11:45:16 - DIAG MAMM RIGHT CAD DIGITALUNILATERAL RIGHT DIGITAL DIAGNOSTIC MAMMOGRAM WITH CAD POST-PROCEDURE IMAGING FOR MARKER PLACEMENT: 12/31/2019CLINICAL: Post clip. Current mammographic images were evaluated by either a ArkadinP M-Vu or a Dromadaire.comcker CAD (computer aided detection system). Comparisonis made to exam dated 12/16/2019 [facility]. There are scattered fibroglandular tissues in the right breast. There is a marker clip in the appropriate position in the right breast at 9 o'clock. This marker clip placement is at the biopsy site. IMPRESSION: POST PROCEDURE IMAGING FOR MARKER PLACEMENTThere was a successful marker clip placement in the right breast. Kareen Quintero M.D. dm/:12/31/2019 11:45:16 Vending Machine Refiller: Brooklynn Sweeney , [facility]-Mammogram BI-RADS: Post-procedure mammogram for marker placementDIAG MAMM BILATERAL JUAN DIEGO CAD [id number] 14:57:56 - DIAG MAMM BILATERAL JUAN DIEGO CAD DIGITALBILATERAL DIGITAL DIAGNOSTIC MAMMOGRAM 3D/2D WITH CAD: 12/16/2019CLINICAL: Palpable mass, right breast. Digital breast tomosynthesis was performed in addition to routine CC and MLO views. Current mammographic images were evaluated by either a ArkadinP M-Vu or a [employer] ImageArtimplant ABcker CAD (computer aided detection system). No prior exams were available for comparison.There are scattered fibroglandular tissues in both breasts. There is a 4 cm irregular mass in the right breast at 9 o'clock. No other significant masses, calcifications, or other findings are seen in either breast. INCOMPLETE: ADDITIONAL IMAGING EVALUATION NEEDEDBilateral ultrasound pending for additional evaluation. - BREAST ULTRASOUND BILATERALULTRASOUND OF BOTH BREASTS AND LEFT AXILLA: 12/16/2019Noprior exams were available for comparison. Real-time ultrasound of both breasts and left axilla and clinical breast exam were performed. There is a 4 cm irregular mass in the right breast at 9 o'clock,5 cm from the nipple. There are enlarged thick rimmed lymph nodes in the right axilla. No abnormalities were seen sonographically in the left breast or the left axilla. IMPRESSION: HIGHLY SUGGESTIVE OFMALIGNANCY - FOLLOW- UP RECOMMENDEDThe 4 cm irregular mass in the right breast at 9 o'clock needs histological evaluation. An ultrasound guided biopsy is recommended. The lymph nodes are abnormal.Kareen Quintero M.D. dm/:12/16/2019 14:57:56 Entry: - 12/17/2019 07:39:40Imaging Technologist: Julieta Silvestre [facility]-FWletter sent: BIRADS 4/5 Biopsy Mammogram BI-RADS: 0 Incomplete: Additional Imaging Evaluation Needed Ultrasound BI-RADS: 5 Highly suggestive of malignancyBREAST ULTRASOUND [id number] 14:57:56 - DIAG MAMM BILATERAL JUAN DIEGO CAD DIGITALBILATERAL DIGITAL DIAGNOSTIC MAMMOGRAM 3D/2D WITH CAD: 12/16/19 20CLINICAL: Palpable mass, right breast. Digital breast tomosynthesis was performed in addition to routine CC and MLO views. Current mammographic images were evaluated by either a [employer] M-Vu or a [employer] ImageChecker CAD (computer aided detection system). No prior exams were available for comparison.There are scattered fibroglandular tissues in both breasts. There is a 4 cm irregular mass in the right breast at 9 o'clock. No other significant masses, calcifications, or other findings are seen in either breast. INCOMPLETE: ADDITIONAL IMAGING EVALUATION NEEDEDBilateral ultrasound pending for additional evaluation. - BREAST ULTRASOUND BILATERALULTRASOUND OF BOTH BREASTS AND LEFT AXILLA: 12/16/2019Noprior exams were available for comparison. Real-time ultrasound of both breasts and left axilla and clinical breast exam were performed. There is a 4 cm irregular mass in the right breast at 9 o'clock,5 cm from the nipple. There are enlarged thick rimmed lymph nodes in the right axilla. No abnormaliti es were seen sonographically in the left breast or the left axilla. IMPRESSION: HIGHLY SUGGESTIVE OFMALIGNANCY - FOLLOW-UP RECOMMENDEDThe 4 cm irregular mass in the right breast at 9 o'clock needs histological evaluation. An ultrasound guided biopsy is recommended. The lymph nodes are abnormal.Kareen Quintero M.D. dm/:12/16/2019 14:57:56 Entry: - 12/17/2019 07:39:40Imaging Technologist: Julieta Silvestre [facility]-FWletter sent: BIRADS 4/5 Biopsy Mammogram BI-RADS: 0 Incomplete: Additional Imaging Evaluation Needed Ultrasound BI-RADS: 5 Highly suggestive of malignancyPOC, COVID 19 Antigen + Flu by Cynthia POC, COVID 19 Antigen + Flu by Cynthia
[2023-01-18] MEDS ORDERED: ONDANSETRON 4 MG/2 ML VIAL ONE (19:04)
[2023-01-18] MEDS ORDERED: MORPHINE 4 MG/ML SYR ONE (19:04)
[2023-01-18 19:32] LABS: Absolute Lymphocytes (CBC) 1.6 K/uL (0.7-4.9); Hematocrit 39.4 % (36.0-45.0); Lymphocytes % 11.8 % (15.3-44.8); MCV 86.4 fL (80-100); MPV 9.5 fL (7.6-11.3); RBC Red Blood Cell Count 4.56 M/uL (3.86-4.86)
[2023-01-18 19:38] LABS: Protime INR 1.01
[2023-01-18 19:50] LABS: Urine Blood 2+ (Negative); Urine Glucose Negative (Negative); Urine Protein Negative (Negative); Urine Specific Gravity 1.025 (1.005-1.030); Urine pH 5.5 (5.0-7.0)
[2023-01-18 20:00] LABS: Urine Bacteria <20 /HPF (<20); Urine Mucus 1+ /HPF (None Seen)
[2023-01-18 20:04] LABS: Albumin 3.7 g/dL (3.4-5.0); Bilirubin Total 0.4 mg/dL (0.2-1.0); Potassium 4.3 mmol/L (3.5-5.1); Protein, Total 7.5 g/dL (6.4-8.2)
--- NOTE | 2023-01-18 20:42 | RAD REPORT ---
EXAM DESCRIPTION: CTAbdomen Pelvis W Contrast - 01/18/2023 8:22 pm CLINICAL HISTORY: Abdominal pain. ABD PAIN COMPARISON: Abdomen Pelvis W Contrast dated 07/04/2022 TECHNIQUE: Biphasic CT imaging of the abdomen and pelvis was performed with 100 ml non-ionic IV cont rast. All CT scans are performed using dose optimization technique as appropriate and may include automated exposure control or mA/KV adjustment according to patient size. FINDINGS: The lung bases are clear. The liver demonstrates diffuse fatty infiltration. Spleen, pancreas, adrenal glands and kidneys are w ithin normal limits. No bowel obstruction, free air, free fluid or abscess. Mild sigmoid diverticulosis coli without diver ticulitis. The appendix is normal. No evidence of significant lymphadenopathy. No suspicious bony findings. IMPRESSION: No acute intra-abdominal or pelvic finding. Fatty liver.
--- NOTE | 2023-01-18 21:57 | RAD REPORT ---
EXAM DESCRIPTION: US - Abdomen Exam Limited - 01/18/2023 9:46 pm CLINICAL HISTORY: ABD PAIN COMPARISON: No comparisons FINDINGS: The gallbladder demonstrates no gallstones. No pericholecystic fluid or gallbladder wall t hickening. The common bile duct is normal measuring 3 mm. The liver demonstrates no findings of intrahepatic biliary dilatation. IMPRESSION: Unremarkable examination.
--- NOTE | 2023-01-18 21:58 | RAD REPORT ---
EXAM DESCRIPTION: RAD - Chest Single View - 01/18/2023 9:51 pm CLINICAL HISTORY: ABDOMINAL DISTENTION Chest pain. COMPARISON: Chest Single View dated 06/02/2022; Chest Single View dated 12/13/2021; Chest Pa And Lat (2 Views) dated 12/13/2021; Chest Single View dated 06/27/2020 FINDINGS: Portable technique limits examination quality. The lungs are grossly clear. The heart is upper limit of normal in size. No displaced fractures. IMPRESSION: No acute intrathoracic process suspected.
--- NOTE | 2023-01-18 22:20 | ER ---
Nurse's Notes [facility] Name: Sujey Dunlap Age: 47 yrs Sex: Female : 1975 Arrival Date: 01/18/2023 Time: 17:03 Bed 15 Private MD: Diagnosis: Diverticulosis of large intestine without perforation or abscess without bleeding;Other abdominal pain Presentation: 01/18 17:17 Chief complaint: Patient states: "On Monday, I started to get a dull pain in the center mb9 of my stomach. I thought I had food poisoning. As soon as I eat something, I get pain and cramps on my right side across to my left. Today I started getting back pain and chills.". Coronavirus screen: Vaccine status: Patient reports being unvaccinated. Ebola Screen: No symptoms or risks identified at this time. Initial Sepsis Screen: Does the patient meet any 2 criteria? No. Patient's initial sepsis screen is negative. Does the patient have a suspected source of infection? No. Patient's initial sepsis screen is negative. Risk Assessment: Do you want to hurt yourself or someone else? Patient reports no desire to harm self or others. Onset of symptoms was January 18, 2023. 17:17 Method Of Arrival: Ambulatory 9 17:17 Acuity: MARQUEZ 3 mb9 Triage Assessment: 20:23 General: Appears in no apparent distress. uncomfortable, ill, Behavior is cooperative, vc1 appropriate for age. Pain: Complains of pain in right lower quadrant Pain currently is 8 out of 10 on a pain scale. GI: Reports lower abdominal pain. 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 - Social history:: Smoking status: Patient denies any tobacco usage or history of. Screenin:23 [facility] ED Fall Risk Assessment (Adult) History of falling in the last 3 months, vc1 including since admission No falls in past 3 months (0 pts) Confusion or Disorientation No (0 pts) Intoxicated or Sedated No (0 pts) Impaired Gait No (0 pts) Mobility Assist Device Used No (0 pt) Altered Elimination No (0 pt) Score/Fall Risk Level 0 - 2 = Low Risk Oriented to surroundings, Maintained a safe environment, Educated pt \\T\\ family on fall prevention, incl call for assistance when getting out of bed. Abuse screen: Denies threats or abuse. Nutritional screening: No deficits noted. Tuberculosis screening: No symptoms or risk factors identified. Assessment: 18:44 Reassessment: pt taken to ER room. mb9 20:23 GI: Bowel sounds present X 4 quads. Abd is soft Abdomen is tender to palpation. vc1 22:11 Reassessment: Patient and/or family updated on plan of care and expected duration. Pain vc1 level reassessed. Patient is alert, oriented x 3, equal unlabored respirations, skin warm/dry/pink. Patient states symptoms have improved. Vital Signs: 17:17 BP 139 / 54; Pulse 109; Resp 18; Temp 98.4(O); Pulse Ox 100% ; Weight 90.72 kg; Height mb9 5 ft. 4 in. ; Pain 10/10; 19:09 BP 130 / 61; Pulse 106; Resp 18; Temp 99.1; Pulse Ox 99% on R/A; Weight 90.72 kg; rs5 Height 5 ft. 4 in. ; 21:00 BP 118 / 67; Pulse 107; Resp 18; Pulse Ox 98% ; vc1 22:00 BP 109 / 61; Pulse 109; Resp 18; Pulse Ox 97% on R/A; vc1 19:09 Body Mass Index 34.33 (90.72 kg, 162.56 cm) rs5 17:17 Pain Scale: Adult mb9 ED Course: 17:03 Patient arrived in ED. mr 17:11 Ananth Crandall PA is PHCP. cp 17:11 Abhishek Rubio MD is Attending Physician. cp 17:19 Triage completed. mb9 17:20 Arm band placed on. mb9 19:08 Inserted saline lock: 22 gauge in left forearm, using aseptic technique. Blood rs5 collected. 19:10 Lactate w/ 2H reflex if indic. Sent. rs5 19:10 CBC with Diff Sent. rs5 19:10 CMP Sent. rs5 19:10 Lipase Sent. rs5 19:10 Urine Microscopic Only Sent. rs5 19:10 PT-INR Sent. rs5 20:22 Roz Menjivar, RN is Primary Nurse. vc1 20:24 CT Abd/Pelvis - IV Contrast Only In Process Unspecified. EDMS 20:24 Patient has correct armband on for positive identification. Bed in low position. Call vc1 light in reach. Pulse ox on. NIBP on. 21:48 US Abdomen Limited: gallbladder In Process Unspecified. EDMS 21:52 XRAY Chest (1 view) In Process Unspecified. EDMS 22:18 Justin Ring MD is Referral Physician. cp Administered Medications: 19:42 Drug: Ondansetron IVP 4 mg Route: IVP; Site: left forearm; vc1 22:11 Follow up: Response: No adverse reaction; Marked relief of symptoms vc1 19:42 Drug: morphine IVP or IV 4 mg Route: IVP; Infused Over: 4 mins; Site: left forearm; vc1 20:30 Follow up: Response: No adverse reaction; Pain is unchanged, physician notified vc1 21:28 Drug: NS 0.9% IV 1000 ml Route: IV; Rate: 1 bolus; Site: left forearm; vc1 21:28 Drug: fentaNYL (PF) IVP 25 mcg Route: IVP; Site: left forearm; vc1 22:11 Follow up: Response: No adverse reaction; Marked relief of symptoms; Pain is decreased vc1 Medication: 20:24 VIS not applicable for this client. vc1 Outcome: 22:19 Discharge ordered by . cp Signatures: Dispatcher [employer] Eugenie Medrano Corey, PA PA cp Roz Menjivar RN RN vc1 Eugenie Virk RN RN mb9 Chris Valencia rs5
--- NOTE | 2023-01-18 22:20 | EDPHYS ---
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 - Social history:: Smoking status: Patient denies any tobacco usage or history of. Vital Signs: 17:17 BP 139 / 54; Pulse 109; Resp 18; Temp 98.4(O); Pulse Ox 100% ; Weight 90.72 kg; Height mb9 5 ft. 4 in. ; Pain 10/10; 19:09 BP 130 / 61; Pulse 106; Resp 18; Temp 99.1; Pulse Ox 99% on R/A; Weight 90.72 kg; rs5 Height 5 ft. 4 in. ; 21:00 BP 118 / 67; Pulse 107; Resp 18; Pulse Ox 98% ; vc1 22:00 BP 109 / 61; Pulse 109; Resp 18; Pulse Ox 97% on R/A; vc1 19:09 Body Mass Index 34.33 (90.72 kg, 162.56 cm) rs5 17:17 Pain Scale: Adult mb9 MDM: 17:23 Patient medically screened. cp 01/18 17:29 Order name: IV Saline Lock; Complete Time: 19:10 cp 01/18 17:29 Order name: Labs collected and sent; Complete Time: 19:10 cp 01/18 17:29 Order name: Urine Dipstick-Ancillary (obtain specimen); Complete Time: 19:51 cp 01/18 17:29 Order name: Urine Test (obtain specimen); Complete Time: 19:51 cp 01/18 17:29 Order name: Urine Microscopic Only; Complete Time: 20:09 cp 01/18 17:29 Order name: Lipase; Complete Time: 20:09 01/18 17:29 Order name: PT-INR; Complete Time: 20:09 01/18 17:29 Order name: Lactate w/ 2H reflex if indic.; Complete Time: 20:26 cp 01/18 20:31 Order name: Urine --Ancillary (enter results) rv1 01/18 17:29 Order name: CBC with Diff; Complete Time: 20:09 01/18 20:55 Interpretation: Normal except: WBC 13.60; MYLA% 81.0; LYM% 11.8; NEUT A 11.0. 01/18 19:50 Order name: Urine Dipstick-Ancillary; Complete Time: 20:09 EDMS 01/18 20:55 Order name: NPO; Complete Time: 21:32 01/18 20:55 Order name: US Abdomen Limited: gallbladder; Complete Time: 22:10 01/18 22:10 Interpretation: Report reviewed. 01/18 21:09 Order name: XRAY Chest (1 view); Complete Time: 22:10 01/18 22:11 Interpretation: Report review. 01/18 17:29 Order name: CMP; Complete Time: 20:09 01/18 22:11 Interpretation: Normal except: GLUC 125; AST 40; GLOB 3.8; A/G 1.0. 01/18 17:29 Order name: CT Abd/Pelvis - IV Contrast Only; Complete Time: 20:54 01/18 22:12 Interpretation: Report reviewed. cp Administered Medications: 19:42 Drug: Ondansetron IVP 4 mg Route: IVP; Site: left forearm; vc1 22:11 Follow up: Response: No adverse reaction; Marked relief of symptoms vc1 19:42 Drug: morphine IVP or IV 4 mg Route: IVP; Infused Over: 4 mins; Site: left forearm; vc1 20:30 Follow up: Response: No adverse reaction; Pain is unchanged, physician notified vc1 21:28 Drug: NS 0.9% IV 1000 ml Route: IV; Rate: 1 bolus; Site: left forearm; vc1 21:28 Drug: fentaNYL (PF) IVP 25 mcg Route: IVP; Site: left forearm; vc1 22:11 Follow up: Response: No adverse reaction; Marked relief of symptoms; Pain is decreased vc1 Disposition Summary: 01/18/23 22:19 Discharge Ordered Location: Home cp Problem: new cp Symptoms: have improved cp Condition: Stable cp Diagnosis - Diverticulosis of large intestine without perforation or abscess without bleeding cp - Other abdominal pain cp Followup: cp - With: Justin Ring MD - When: 2 - 3 days - Reason: Recheck today's complaints Discharge Instructions: - Discharge Summary Sheet cp - High-Fiber Eating Plan cp - Diverticulosis cp - Abdominal Pain, Adult cp Forms: - Medication Reconciliation Form cp - Thank You Letter cp - Antibiotic Education cp - Prescription Opioid Use cp Prescriptions: - Augmentin 875-125 mg Oral Tablet - take 1 tablet by ORAL route every 12 hours for 10 days; 20 tablet; Refills: 0, cp Product Selection Permitted - Zofran 4 mg Oral Tablet - take 1 tablet by ORAL route every 12 hours As needed; 20 tablet; Refills: 0, cp Product Selection Permitted - dicyclomine 20 mg Oral Tablet - take 1 tablet by ORAL route 4 times per day; 30 tablet; Refills: 0, Product cp Selection Permitted Signatures: Dispatcher [employer] EDMS Sal Crawford, DOOR TENDER-C DOOR TENDER-Cla1 Ananth Crandall PA PA cp Roz Menjivar RN RN vc1 Eugenie Virk RN RN mb9
[2023-01-18 22:22] LABS: Urine Specific Gravity/Preg 1.025 (1.005-1.030)
[2023-01-18] MEDS ORDERED: AMOX/K CLAV 875 MG TAB ONE (22:40)
[2023-01-18] MEDS ORDERED: DICYCLOMINE HCL 10 MG CAP ONE (22:41)
[2023-01-19 08:15] VITALS: TEMP 99.1
[2023-01-19 08:19] VITALS: BP 111/72; O2SAT 96
== END 2023-01-18 23:26 | disposition home or self-care (01) ==
LOC: ER 17:01
DX: K57.30 Diverticulosis of large intestine without perforation or abscess without bleeding (principal); Z90.13 Acquired absence of bilateral breasts and nipples; Z85.3 Personal history of malignant neoplasm of breast; Z88.5 Allergy status to narcotic agent; Z88.8 Allergy status to other drugs, medicaments and biological substances
CPT/HCPCS: 85025; 36415; 81025; 85610; 83605; 83690; 80053; 74177; 71045; 76705; Q9967; J2405; 81003; 81015